=== PATIENT | female | born 1990 | race Caucasian/White ===

== ENCOUNTER → 2017-07-26 | Outpatient (CLI) | payer OTHER ==
[2017-07-26 13:10] LABS: EOSINOPHILS # (AUTO) 0.1 10^3/uL (0.0-0.7); EOSINOPHILS % (AUTO) 2.6 %; HCT - HEMATOCRIT 38.8 % (37.0-47.0); HGB - HEMOGLOBIN 13.1 g/dL (12.0-16.0); LYMPHOCYTES # (AUTO) 1.8 10^3/uL (1.5-3.5); LYMPHOCYTES % (AUTO) 38.3 %; MEAN CORPUSCULAR HEMOGLOBIN 28.9 pg (27.0-31.0); MEAN CORPUSCULAR HGB CONC 33.7 g/dL (32.0-36.0); MEAN CORPUSCULAR VOLUME 85.9 fL (81.0-99.0); MEAN PLATELET VOLUME 8.2 fL (7.9-10.8); MONOCYTES # (AUTO) 0.4 10^3/uL (0.0-1.0); MONOCYTES % (AUTO) 8.1 %; NEUTROPHILS # (AUTO) 2.3 10^3/uL (1.5-6.6); NUCLEATED RED BLOOD CELLS AUTO 0.1 /100WBC; RED BLOOD COUNT 4.51 10^6/uL (4.20-5.40); UNCORRECTED WHITE BLOOD COUNT 4.6 x10^3/uL; WHITE BLOOD COUNT 4.6 x10^3/uL (4.8-10.8)
[2017-07-26 13:40] LABS: ALBUMIN/GLOBULIN RATIO 1.4 (1.0-2.2); BILIRUBIN,TOTAL 0.3 mg/dL (0.2-1.0); BUN - BLOOD UREA NITROGEN 11 mg/dL (6-20); CALCIUM 9.2 mg/dL (8.5-10.3); CARBON DIOXIDE - CO2 28 mmol/L (21-32); CHLORIDE 107 mmol/L (101-111); CHOL/HDL RATIO 2.5 (<4.4); CHOLESTEROL 182 mg/dL; CREATININE 0.5 mg/dL (0.4-1.0); GFR - MDRD 149 (>89); GLUCOSE 96 mg/dL (70-100); HDL CHOLESTEROL 72 mg/dL; LDL/HDL RATIO 1.4 (<4.4); POTASSIUM 3.8 mmol/L (3.5-5.0); SODIUM 139 mmol/L (135-145); TOTAL PROTEIN 7.3 g/dL (6.7-8.2); TRIGLYCERIDES 42 mg/dL; VLDL CHOLESTEROL 8 mg/dL
== END ==
LOC: LAB.WCP 09:17
PROVIDERS: ATTEND Family Medicine
DX: Z00.00 Encounter for general adult medical examination without abnormal findings (principal)
CPT/HCPCS: 36415; 80053; 80061; 85025

== ENCOUNTER 2019-08-19 08:00 | Outpatient (CLI) | payer BC, OTHER | END 2019-08-19 23:59 | disposition home or self-care (01) | LOC: LAB.WCP 08:00 | PROVIDERS: ATTEND Family Medicine | DX: N39.0 Urinary tract infection, site not specified (principal) | CPT/HCPCS: 87077; 87086; 87181 ==

== ENCOUNTER 2021-01-17 08:00 | Outpatient (CLI) | payer BC ==
[2021-01-17 18:36] LABS: BASOPHILS % (AUTO) 0.7 %; EOSINOPHILS # (AUTO) 0.1 10^3/uL (0.0-0.7); EOSINOPHILS % (AUTO) 1.2 %; HCT - HEMATOCRIT 40.8 % (37.0-47.0); LYMPHOCYTES # (AUTO) 1.2 10^3/uL (1.5-3.5); LYMPHOCYTES % (AUTO) 28.7 %; MEAN CORPUSCULAR HEMOGLOBIN 28.9 pg (27.0-31.0); MEAN CORPUSCULAR HGB CONC 31.9 g/dL (32.0-36.0); MEAN CORPUSCULAR VOLUME 90.7 fL (81.0-99.0); MEAN PLATELET VOLUME 10.1 fL (7.9-10.8); MONOCYTES # (AUTO) 0.3 10^3/uL (0.0-1.0); MONOCYTES % (AUTO) 5.9 %; NEUTROPHILS # (AUTO) 2.7 10^3/uL (1.5-6.6); NEUTROPHILS % (AUTO) 63.3 %; PLT - PLATELET COUNT 260 10^3/uL (130-450); RED CELL DISTRIBUTION WIDTH 12.6 % (12.0-15.0); WHITE BLOOD COUNT 4.2 x10^3/uL (4.8-10.8)
[2021-01-17 19:13] LABS: % IRON SATURATION 18 % (20-50); ALBUMIN 4.6 g/dL (3.2-5.5); ALBUMIN/GLOBULIN RATIO 1.5 (1.0-2.2); ALKALINE PHOSPHATASE 39 IU/L (42-121); ALT ALANINE AMINOTRANSFERASE 12 IU/L (10-60); AST ASPARTATE AMINOTRANSFERASE 15 IU/L (10-42); BILIRUBIN,TOTAL 0.7 mg/dL (0.2-1.0); BUN - BLOOD UREA NITROGEN 10 mg/dL (6-20); CALCIUM 9.3 mg/dL (8.5-10.3); CARBON DIOXIDE - CO2 26 mmol/L (21-32); CHLORIDE 101 mmol/L (101-111); CHOL/HDL RATIO 2.5 (<4.4); CHOLESTEROL 211 mg/dL; CREATININE 0.4 mg/dL (0.4-1.0); GFR - MDRD 187 (>89); GLUCOSE 93 mg/dL (70-100); HDL CHOLESTEROL 84 mg/dL; IRON 77 ug/dL (28-170); LDL CHOLESTEROL,CALCULATED 116 mg/dL; LDL/HDL RATIO 1.4 (<4.4); POTASSIUM 3.5 mmol/L (3.5-5.0); SODIUM 136 mmol/L (135-145); TOTAL IRON BINDING CAPACITY 420 ug/dL (250-450); TOTAL PROTEIN 7.7 g/dL (6.7-8.2); TRANSFERRIN 300 mg/dL (192-382); TRIGLYCERIDES 56 mg/dL; VLDL CHOLESTEROL 11 mg/dL
[2021-01-17 19:20] LABS: THYROID STIMULATING HORMONE 0.92 uIU/mL (0.34-5.60)
[2021-01-17 19:27] LABS: FERRITIN 25.8 ng/mL (11.0-306.8)
[2021-01-17 20:00] LABS: ESTIMATED AVERAGE GLUCOSE 103 mg/dL (70-100); HEMOGLOBIN A1c% 5.2 % (4.27-6.07)
== END 2021-01-17 23:59 | disposition home or self-care (01) ==
LOC: LAB.WCP 08:00
PROVIDERS: ATTEND Family Medicine
DX: Z00.00 Encounter for general adult medical examination without abnormal findings (principal)
CPT/HCPCS: 36415; 80053; 80061; 82306; 82607; 82728; 83036; 83540; 83721; 84443; 84466; 85025

== ENCOUNTER 2021-01-19 08:00 | Outpatient (CLI) | payer BC ==
[2021-01-19 19:28] LABS: FECAL OCCULT BLOOD (FIT) NEGATIVE (NEGATIVE)
== END 2021-01-19 23:59 | disposition home or self-care (01) ==
LOC: LAB.R 08:00
PROVIDERS: ATTEND Family Medicine
DX: K92.1 Melena (principal)
CPT/HCPCS: 82274

== ENCOUNTER 2021-04-01 08:00 | Outpatient (CLI) | payer BC ==
[2021-04-01 18:12] LABS: MUDS CUTOFF CONCENTRATIONS CUTOFF CONC BELOW:
[2021-04-01 18:27] LABS: BILIRUBIN,URINE NEGATIVE (NEGATIVE); GLUCOSE, URINE (UA) NEGATIVE (NEGATIVE); KETONES,URINE (UA) NEGATIVE (NEGATIVE); LEUKOCYTE ESTERASE, URINE TRACE (NEGATIVE); NITRITE,URINE NEGATIVE (NEGATIVE); OCCULT BLOOD,URINE NEGATIVE (NEGATIVE); PH,URINE 7.5 PH (5.0-7.5); PROTEIN,URINE NEGATIVE (NEGATIVE); UROBILINOGEN,URINE 0.2 (NORMAL) E.U./dL (NORMAL)
[2021-04-01 18:31] LABS: CLARITY,URINE HAZY (CLEAR)
[2021-04-01 18:39] LABS: AMPHETAMINE SCREEN,URINE NEGATIVE (NEGATIVE); BARBITURATE SCREEN,UR NEGATIVE (NEGATIVE); BENZODIAZEPINES SCREEN, URINE NEGATIVE (NEGATIVE); COCAINE SCREEN URINE NEGATIVE (NEGATIVE); METHADONE SCREEN, URINE NEGATIVE (NEGATIVE); METHAMPHETAMINES SCREEN, URINE NEGATIVE (NEGATIVE); OPIATE SCREEN, URINE NEGATIVE (NEGATIVE); OXYCODONE SCREEN, URINE NEGATIVE (NEGATIVE); PROPOXYPHENE SCREEN, URINE NEGATIVE (NEGATIVE); THC CANNABINOID SCREEN, URINE NEGATIVE (NEGATIVE); TRICYCLIC ANTIDEPRESSANT,URINE NEGATIVE (NEGATIVE)
[2021-04-01 18:45] LABS: BACTERIA,URINE Few /HPF (None Seen); RBC,URINE None Seen /HPF (0-5); SQUAMOUS EPITHELIAL CELL,UR NONE SEEN (<= Few)
== END 2021-04-01 23:59 | disposition home or self-care (01) ==
LOC: LAB.WC 08:00
PROVIDERS: ATTEND Obstetrics & Gynecology
DX: Z32.01 Encounter for pregnancy test, result positive (principal)
CPT/HCPCS: 80306; 81001; 87086

== ENCOUNTER 2021-04-14 16:57 | Outpatient (CLI) | payer BC ==
[2021-04-14 18:08] LABS: BASOPHILS % (AUTO) 0.3 %; EOSINOPHILS # (AUTO) 0.1 10^3/uL (0.0-0.7); EOSINOPHILS % (AUTO) 1.1 %; HCT - HEMATOCRIT 37.2 % (37.0-47.0); HGB - HEMOGLOBIN 12.5 g/dL (12.0-16.0); LYMPHOCYTES % (AUTO) 21.9 %; MEAN CORPUSCULAR HEMOGLOBIN 29.6 pg (27.0-31.0); MEAN CORPUSCULAR HGB CONC 33.6 g/dL (32.0-36.0); MEAN CORPUSCULAR VOLUME 87.9 fL (81.0-99.0); MEAN PLATELET VOLUME 9.5 fL (7.9-10.8); MONOCYTES # (AUTO) 0.6 10^3/uL (0.0-1.0); MONOCYTES % (AUTO) 6.9 %; NEUTROPHILS # (AUTO) 6.4 10^3/uL (1.5-6.6); NEUTROPHILS % (AUTO) 69.5 %; PLT - PLATELET COUNT 244 10^3/uL (130-450); RED BLOOD COUNT 4.23 10^6/uL (4.20-5.40); RED CELL DISTRIBUTION WIDTH 12.9 % (12.0-15.0); WHITE BLOOD COUNT 9.3 x10^3/uL (4.8-10.8)
--- NOTE | 2021-04-15 10:04 | Ultrasound Report ---
PROCEDURE: OB First Trimester INDICATIONS: POSITIVE TEST OUTSIDE/PRIOR DATING DATA: Last menstrual period (LMP): 02/06/2021. LMP-based estimated date of delivery (YAW): 11/13/2021. First dating scan (date and location): 04/14/2021. Estimated date of delivery (YAW) from first dating scan: 11/14/2021. The below data below was generated using the above YAW of TECHNIQUE: Real-time scanning was performed of the fetus and maternal pelvic organs, with image documentation. COMPARISON: None. FINDINGS: There is a single living intrauterine gestation with crown-rump length 2.6 cm which correl ates with a gestational age of 9 weeks 3 days, +/- 5 days. heart rate of 169 bpm is observed. Embryo: No evidence of perigestational hemorrhage. Heart rate: 1 69 bpm. Measurement variability in dating: +/- 4 weeks by LMP, +/- 7 days by mean sac diameter (use before 6 weeks gestation if crown-rump length not able to be measured), +/- 5 days by crown-rump length (6-12 weeks gestation). Maternal organs: Ovaries normal considering gestational status.. IMPRESSION: Early first trimester gestation, viability confirmed, estimated date of delivery is centered on 11/14/2021, +/- 5 days. Reviewed by: Mert Mckeon MD on 04/15/2021 10:03 AM PDT Approved by: Mert Mckeon MD on 04/15/2021 10:03 AM PDT Station ID: [id number]
[2021-04-16 11:41] LABS: HEPATITIS B SURFACE ANTIGEN NON-REACTIVE (NON-REACTIVE)
[2021-04-16 11:42] LABS: HEPATITIS C ANTIBODY NON-REACTIVE (NON-REACTIVE)
[2021-04-16 13:33] LABS: HIV AG/AB 4TH GEN NON-REACTIVE (NON-REACTIVE)
== END 2021-04-14 16:58 | disposition home or self-care (01) ==
LOC: DI 16:57 → LAB 16:58
PROVIDERS: ATTEND Nurse Practitioner Obstetrics & Gynecology
DX: Z36.89 Encounter for other specified antenatal screening (principal); Z32.01 Encounter for pregnancy test, result positive
CPT/HCPCS: 36415; 85025; 86592; 86762; 86787; 86803; 86850; 86900; 86901; 87340; 87389

== ENCOUNTER 2021-05-02 08:00 | Outpatient (CLI) | payer BC ==
[2021-05-03 22:22] LABS: CHLAMYDIA TRACHOMATIS DNA NEGATIVE (NEGATIVE); NEISSERIA GONORRHOEAE DNA NEGATIVE (NEGATIVE); TRICHOMONAS VAGINALIS DNA NEGATIVE (NEGATIVE)
== END 2021-05-02 23:59 | disposition home or self-care (01) ==
LOC: LAB.R 08:00
PROVIDERS: ATTEND Obstetrics & Gynecology
DX: Z34.90 Encounter for supervision of normal pregnancy, unspecified, unspecified trimester (principal)
CPT/HCPCS: 87491; 87591; 87661

== ENCOUNTER 2021-05-14 05:42 | Outpatient (CLI) | payer BC | END 2021-05-14 05:43 | disposition home or self-care (01) | LOC: LAB 05:42 | PROVIDERS: ATTEND Obstetrics & Gynecology | DX: Z34.90 Encounter for supervision of normal pregnancy, unspecified, unspecified trimester (principal); Z36.89 Encounter for other specified antenatal screening | CPT/HCPCS: 36415; 81220; 81243; 81329; 81599 ==

== ENCOUNTER 2021-06-09 14:41 | Outpatient (CLI) | payer BC ==
--- NOTE | 2021-06-13 09:50 | Ultrasound Report ---
PROCEDURE: OB Detailed Eval INDICATIONS: SUPERVISION OF OUTSIDE/PRIOR DATING DATA: Last menstrual period (LMP): 02/06/2021. LMP-based estimated date of delivery (YAW): 11/13/2021. First dating scan (date and location): 04/14/2021. Estimated date of delivery (YAW) from first dating scan: 11/14/2021. TECHNIQUE: Real-time scanning was performed of the fetus, with image documentation and biometric measurements. Endovaginal scanning: No COMPARISON: 04/14/2021 ultrasound examination FINDINGS: General: A single living intrauterine gestation is present. Presentation: Breech Placenta: Placental position is posterior, with marginal previa. Inferior placental edge is roughly 9 mm from internal cervical loss. Amniotic fluid index: 11.3 cm heart rate: 160 beats per minute. Maternal cervical canal: 3.30 cm long; normal length is 2.5 cm or more. biometrics: Biparietal diameter: 36 mm; 16 weeks 6 days Head circumference: 141 mm; 17 weeks 3 days Abdominal circumference: 117 mm; 17 weeks 3 days Femur length: 25 mm; 17 weeks 3 days Estimated gestational age from initial scan: 17 weeks 3 days Composite gestational age from present scan: 17 weeks 3 days Estimated weight and percentile: 194 g which is at the 43rd percentile for gestational age Measurement variability in biometric dating: +/- 10 days from 12-20 weeks gestation, +/- 2 weeks from 20-30 weeks gestation, +/- 3 weeks at 30 weeks gestation or later. Anatomic survey: Neuro: Ventricles are normal at less than 10 mm. Cisterna magna is normal at 3-11 mm. Cerebellum i s normal in size and morphology. Nuchal skin fold: Normal at less than 6 mm between 14 and 20 weeks gestational age. Face: Nose and lips, facial profile are normal. Spine: No evidence for spina bifida. Heart: 4-chambered heart is present, with normal ventricular outflow tracts. Diaphragm: Diaphragm is intact. Stomach: Left-sided stomach is present. Kidneys: No hydronephrosis. Normal is less than 5 mm in 2nd trimester, less than 7 mm in 3rd trimester. Cord: 3 vessel cord has orthotopic insertion. Bladder: Normal in size. Extremities: All 4 extremities are visualized. IMPRESSION: 1. Single living intrauterine gestation. 2. Marginal placenta previa. 3. Negative survey of anatomy. Reviewed by: Mae Mejia MD on 06/13/2021 9:49 AM PDT Approved by: Mae Mejia MD on 06/13/2021 9:49 AM PDT Station ID: [id number]
== END 2021-06-09 14:42 | disposition home or self-care (01) ==
LOC: DI 14:41
PROVIDERS: ATTEND Obstetrics & Gynecology
DX: O44.22 Partial placenta previa NOS or without hemorrhage, second trimester (principal); Z3A.17 17 weeks gestation of pregnancy
CPT/HCPCS: 81511

== ENCOUNTER 2021-06-09 16:26 | Outpatient (CLI) | payer BC ==
[2021-06-14 12:42] LABS: AFP MOM 1.61; AGE RISK DOWN SYNDROME 1 IN 671; CALC'D GESTATIONAL AGE 17.6 weeks; CIGARETTE SMOKER? NOT GIVEN; DONOR AGE: EGG RETRIEVAL NOT GIVEN; DONOR EGG NOT GIVEN; ESTRIOL MOM 1.29; HCG MOM 0.54; HX OF NEURAL TUBE DEFECTS NOT GIVEN; INHIBIN A MOM 0.95; INSULIN DEPEND DIABETIC NO; MATERNAL WEIGHT 98 lbs; MSS DOWN SYNDROME RISK <1 IN 5000; MSS3 TRISOMY 18 RISK <1 IN 5000; NUMBER OF FETUSES 1; PREV PREGNANCY DOWN SYND NOT GIVEN; RISK FOR ONTD 1 IN 2046
== END 2021-06-09 16:27 | disposition home or self-care (01) ==
LOC: LAB 16:26
PROVIDERS: ATTEND Obstetrics & Gynecology
DX: Z34.90 Encounter for supervision of normal pregnancy, unspecified, unspecified trimester (principal)
CPT/HCPCS: 81511

== ENCOUNTER 2021-06-28 15:39 | Outpatient (CLI) | payer BC ==
--- NOTE | 2021-06-29 11:20 | Ultrasound Report ---
PROCEDURE: OB F/U or Repeat INDICATIONS: SUPERVISION OF OUTSIDE/PRIOR DATING DATA: Last menstrual period (LMP): 02/06/2021. LMP-based estimated date of delivery (YAW): 11/13/2021. First dating scan (date and location): 04/14/2021. Estimated date of delivery (YAW) from first dating scan: 11/14/2021. The below data below was generated using the ultrasound YAW of 11/14/2021 TECHNIQUE: Real-time scanning was performed of the fetus, with image documentation and biometric measurements. Endovaginal scanning: Not performed COMPARISON: 04/14/2021, 06/09/2021, 06/28/2021. FINDINGS: General: A single living intrauterine gestation is present. Presentation: Vertex Placenta: Placental position is posterior, without previa. Amniotic fluid index: 14.0 cm, normal for gestational age. Largest pocket measures 4.2 cm. heart rate: 147 beats per minute. Maternal cervical canal: 4.1 cm long; normal length is 2.5 cm or more. Estimated gestational age from initial scan: 20 weeks 1 day. Other: Inferior tip of the placenta approximately 2 cm from the internal os. Normal appearance of the spine, four-chamber heart, ventricular outflow tracts, chest, stomach, kidneys, face and urina ry bladder. IMPRESSION: Single living intrauterine fetus in vertex presentation Low-lying placenta. Recommend follow-up. Otherwise, completion of normal anatomic survey. Reviewed by: Harjit Taylor MD on 06/29/2021 11:19 AM PDT Approved by: Harjit Taylor MD on 06/29/2021 11:19 AM PDT Station ID: [id number]
== END 2021-06-28 15:40 | disposition home or self-care (01) ==
LOC: DI 15:39
PROVIDERS: ATTEND Obstetrics & Gynecology
DX: Z34.92 Encounter for supervision of normal pregnancy, unspecified, second trimester (principal)

== ENCOUNTER 2021-07-22 16:48 | Outpatient (CLI) | payer BC ==
--- NOTE | 2021-07-22 17:43 | PROVIDER PROGRESS NOTE ---
- HPI Chief Complaint: Vaginal bleeding Current : Patient is a 31-year-old G1, P0 at 23 weeks 5 days gestation presenting for vaginal bleeding. She said earlier today she stood up to go to the kitchen and had a small gush of blood. She find a liner, and had a small amount more. She came in because of this. She has good movement. No significant leaking other than the bleeding. No headache, change in vision, right upper quadrant pain. She denies intercourse this morning. No dysuria. - Procedures NST Procedure: 115 by bedside Doppler Findings: Physical exam: General: Alert, oriented, no acute distress Abdomen: Soft, nontender SSE: Small amount of fresh blood in the vagina and on external labia. Mucoid material coming from cervical os. No tim bleeding. Negative Negative pooling, ferning, Valsalva, nitrazine SVE: Deferred - Plan Plan: 31-year-old G1, P0 at 23 weeks 5 days gestation with vaginal bleeding 1. 23 weeks gestation - heart tones documented and appropriate by bedside Doppler 2. Vaginal bleeding -GC/CT/trichomonas sent to lab -Wet prep is unremarkable. No clue cells, trichomonas, no significant yeast noted on exam -Sterile speculum exam negative for signs of ruptured membranes -Due to small amount of blood, test for rupture of membranes was not sent to the lab as false positives occur with blood contamination -More mucoid discharge from cervix than usual, however does not appear to that membranes are ruptured. We did discuss with patient that if her membranes were ruptured, there would be little we could do at this point. Did not want to send rupture membrane test and have false positive entire in a process of PPPROM if this were falsely diagnosed. -Will monitor for signs of labor or increase leaking. If patient has another episode of significant leaking, she should represent for another SSE and assessment of amniotic fluid. -Patient to return if she develops abdominal pain, fevers. Family/Social History - Family History Discussion: Mother: Breast cancer- at age 46 Father: Hypertension Maternal grandfather: CVA - Social History Discussion: Never smoker. No drug or alcohol use. PMH/PSH - Past Medical History Other Past Medical History: Tuberculosis - Past Surgical History Other past surgical history: None Physical - Abdominal Exam Vital Signs: Exam - Exam Vital Signs: Vital Signs (72 hours) 07/22/21 17:07 Temperature 97.9 F Heart Rate 96 Heart Rate [ 96 Radial] Respiratory 14 Rate Blood Pressure 122/80 Blood Pressure 122/80 [Left Brachial artery] O2 Saturation 100
[2021-07-22 17:53] VITALS: BP 122/80
== END 2021-07-22 18:09 | disposition home or self-care (01) ==
LOC: WFO 16:48 → FBP 16:50 → WFO 18:09
PROVIDERS: ATTEND Obstetrics & Gynecology
DX: O20.9 Hemorrhage in early pregnancy, unspecified (principal); Z3A.23 23 weeks gestation of pregnancy; Z86.11 Personal history of tuberculosis
CPT/HCPCS: 87491; 87591; 87661; 99215

== ENCOUNTER 2021-08-10 08:00 | Outpatient (CLI) | payer BC ==
[2021-08-11 20:28] LABS: BACTERIAL VAGINOSIS DNA NEGATIVE (NEGATIVE); CANDIDA GLABRATA DNA NEGATIVE (NEGATIVE); CANDIDA GROUP DNA NEGATIVE (NEGATIVE); CANDIDA KRUSEI DNA NEGATIVE (NEGATIVE); TRICHOMONAS VAGINALIS DNA NEGATIVE (NEGATIVE)
== END 2021-08-10 08:45 | disposition home or self-care (01) ==
LOC: LAB 08:00
PROVIDERS: ATTEND Nurse Practitioner Obstetrics & Gynecology
DX: O99.891 Other specified diseases and conditions complicating pregnancy (principal); N89.8 Other specified noninflammatory disorders of vagina
CPT/HCPCS: 87661; 87801

== ENCOUNTER 2021-08-21 06:00 | Outpatient (CLI) | payer BC | END 2021-08-21 23:59 | LOC: LAB 06:00 | PROVIDERS: ATTEND Obstetrics & Gynecology | DX: Z34.00 Encounter for supervision of normal first pregnancy, unspecified trimester (principal); Z36.89 Encounter for other specified antenatal screening | CPT/HCPCS: 36415; 82947; 82950 ==

== ENCOUNTER 2021-08-30 07:59 | Outpatient (CLI) | payer BC ==
[2021-08-30 08:47] LABS: GTT GLUCOSE,FASTING 79 mg/dL (70-100)
[2021-08-30 11:45] LABS: HCT - HEMATOCRIT 33.5 % (37.0-47.0); HGB - HEMOGLOBIN 11.1 g/dL (12.0-16.0); MEAN CORPUSCULAR HEMOGLOBIN 30.9 pg (27.0-31.0); MEAN CORPUSCULAR HGB CONC 33.1 g/dL (32.0-36.0); MEAN CORPUSCULAR VOLUME 93.3 fL (81.0-99.0); MEAN PLATELET VOLUME 9.5 fL (7.9-10.8); RED BLOOD COUNT 3.59 10^6/uL (4.20-5.40); RED CELL DISTRIBUTION WIDTH 13.2 % (12.0-15.0); WHITE BLOOD COUNT 6.9 x10^3/uL (4.8-10.8)
== END 2021-08-30 08:00 | disposition home or self-care (01) ==
LOC: LAB 07:59
PROVIDERS: ATTEND Obstetrics & Gynecology
DX: O99.810 Abnormal glucose complicating pregnancy (principal)
CPT/HCPCS: 36415; 82951; 82952; 85027

== ENCOUNTER 2021-09-26 13:00 | Outpatient (CLI) | payer BC | END 2021-09-26 13:01 | disposition home or self-care (01) | LOC: NS 13:00 | PROVIDERS: ATTEND Obstetrics & Gynecology | DX: Z53.9 Procedure and treatment not carried out, unspecified reason (principal) ==

== ENCOUNTER 2021-09-29 15:09 | Outpatient (CLI) | payer BC ==
--- NOTE | 2021-09-29 16:29 | Ultrasound Report ---
PROCEDURE: OB F/U or Repeat INDICATIONS: GESTATIONAL DIABETES OUTSIDE/PRIOR DATING DATA: Last menstrual period (LMP): 02/06/2021. LMP-based estimated date of delivery (YAW): 11/13/2021. First dating scan (date and location): 04/14/2021. Estimated date of delivery (YAW) from first dating scan: 11/14/2021. The below data below was generated using the ultrasound YAW of 11/14/2021 TECHNIQUE: Real-time scanning was performed of the fetus, with image documentation and biometric measurements. COMPARISON: OB ultrasound 06/28/2021, 04/14/2021 FINDINGS: General: A single living intrauterine gestation is present. Presentation: Vertex Placenta: Placental position is posterior, without previa. Amniotic fluid index: 13.6 cm, within normal limits for gestational age. Largest pocket 4.3 cm heart rate: 150 beats per minute. Maternal cervical canal: 3.0 cm long; normal length is 2.5 cm or more. biometrics: Biparietal diameter: 7.7 cm 31 weeks 0 days Head circumference: 29.6 cm 32 weeks 5 days Abdominal circumference: 20.1 cm 32 weeks 1 day Femur length: 6.2 cm 32 weeks 0 days Estimated gestational age from initial scan: 33 weeks 3 days Composite gestational age from present scan: 32 weeks 0 days Estimated weight and percentile: 18 7 g 10.6 percentile Measurement variability in biometric dating: +/- 10 days from 12-20 weeks gestation, +/- 2 weeks from 20-30 weeks gestation, +/- 3 weeks at 30 weeks gestation or more. Other: Nuchal cord is noted. IMPRESSION: 1. Single live intrauterine is identified. 2. weight is noted at the 10th percentile concerning for microsomia. It is noted weight o n 06/09/2021 was at the 43rd percentile. Clinical and an interval ultrasound follow-up is recommended. 3. Nuchal cord is noted. Interval follow-up is recommended as indicated. Reviewed by: Shanel Nichols MD on 09/29/2021 4:28 PM PST Approved by: Shanel Nichols MD on 09/29/2021 4:28 PM PST Station ID: [id number]
== END 2021-09-29 15:10 | disposition home or self-care (01) ==
LOC: DI 15:09
PROVIDERS: ATTEND Obstetrics & Gynecology
DX: O24.419 Gestational diabetes mellitus in pregnancy, unspecified control (principal); O09.93 Supervision of high risk pregnancy, unspecified, third trimester; Z3A.32 32 weeks gestation of pregnancy

== ENCOUNTER 2021-10-19 08:00 | Outpatient (CLI) | payer BC | END 2021-10-19 23:59 | disposition home or self-care (01) | LOC: LAB.WC 08:00 | PROVIDERS: ATTEND Obstetrics & Gynecology | DX: Z36.85 Encounter for antenatal screening for Streptococcus B (principal) | CPT/HCPCS: 87797 ==

== ENCOUNTER 2021-10-24 16:09 | Outpatient (CLI) | payer BC ==
--- NOTE | 2021-10-24 18:01 | Ultrasound Report ---
PROCEDURE: OB F/U or Repeat INDICATIONS: GESTATIONAL DIABETES OUTSIDE/PRIOR DATING DATA: Last menstrual period (LMP): 02/06/2021. LMP-based estimated date of delivery (YAW): 11/13/2021. First dating scan (date and location): 04/14/2021. Estimated date of delivery (YAW) from first dating scan: 11/14/2021. The below data below was generated using the ultrasound YAW of 11/14/2021 TECHNIQUE: Real-time scanning was performed of the fetus, with image documentation and biometric measurements. COMPARISON: None. FINDINGS: General: A single living intrauterine gestation is present. Presentation: Vertex Placenta: Placental position is posterior, without previa. Amniotic fluid index: 18.3 cm. Largest pocket 6.1 cm heart rate: 145 beats per minute. Maternal cervical canal: Unable to image biometrics: Biparietal diameter: 8.5 cm. 34 weeks 0 days Head circumference: 31.6 cm. 35 weeks 3 days Abdominal circumference: 30.6 cm. 34 weeks 4 days Femur length: 6.9 cm. 35 weeks 3 days Estimated gestational age from initial scan: 37 weeks 0 days. Composite gestational age from present scan: 34 weeks 6 days Estimated weight and percentile: 2523 g. 9.5 percentile Measurement variability in biometric dating: +/- 10 days from 12-20 weeks gestation, +/- 2 weeks from 20-30 weeks gestation, +/- 3 weeks at 30 weeks gestation or more. Other: Not applicable. IMPRESSION: 1. size less than expected for dates. 2. Estimated weight 2523 g, 9.5%tile concerning for microsomia.. Reviewed by: David Castro on 10/24/2021 6:00 PM [facility] Approved by: David Castro on 10/24/2021 6:00 PM [facility] Station ID: [id number]
== END 2021-10-24 16:10 | disposition home or self-care (01) ==
LOC: DI 16:09
PROVIDERS: ATTEND Obstetrics & Gynecology
DX: O09.93 Supervision of high risk pregnancy, unspecified, third trimester (principal); O24.419 Gestational diabetes mellitus in pregnancy, unspecified control; Z3A.34 34 weeks gestation of pregnancy

== ENCOUNTER 2021-10-27 16:34 | Outpatient (CLI) | payer BC ==
[2021-10-27 17:21] VITALS: BP 127/82
--- NOTE | 2021-10-27 18:12 | Ultrasound Report ---
PROCEDURE: OB Limited INDICATIONS: IUGR OUTSIDE/PRIOR DATING DATA: Last menstrual period (LMP): 02/06/2021. LMP-based estimated date of delivery (YAW): 11/13/2021. First dating scan (date and location): 04/14/2021. Estimated date of delivery (YAW) from first dating scan: 11/14/2021. The below data below was generated using the ultrasound YAW of 11/14/2021 TECHNIQUE: Real-time scanning was performed of the fetus, with image documentation. Endovaginal scanning: Not performed COMPARISON: 10/24/2021 FINDINGS: A single living intrauterine gestation is present. Presentation: Vertex Placenta: Placental position is posterior, without previa. Amniotic fluid index: 17.2 cm, largest vertical pocket measured 4.7 cm heart rate: 150 beats per minutes. Maternal cervical canal: Not imaged. Estimated gestational age from initial scan: 37 weeks and 3 days. Normal SD ratios measuring 2.4 at the placenta, 2.4 at the mid cord, and 2.7 at the abdomen. Incident al note of nuchal cord. Normal appearing umbilical artery Doppler waveforms. IMPRESSION: Single living intrauterine gestation with estimated gestational age of approximately 77 weeks and 3 d ays. Four-quadrant PAULIE measures 17.2 cm with largest vertical pocket measuring 4.7 cm. Normal SD ratios and umbilical artery Doppler waveforms. Incidental note of nuchal cord. Findings were reported to Dr. Blum by the learning support teacher at time of study completion. Reviewed by: Jose Rebolledo MD on 10/27/2021 6:11 PM PST Approved by: Jose Rebolledo MD on 10/27/2021 6:11 PM PST Station ID: [id number]
--- NOTE | 2021-10-27 20:12 | PROCEDURE REPORT ---
- HPI Diagnosis/Indication for NST: Intrauterine growth restriction Current EDU 11/13/21 Gestation 37 Weeks and 4 Days 1 Para 0 Vital Signs Temperature 98.6 F 10/27/21 16:50 Heart Rate 85 10/27/21 16:50 Respiratory Rate 17 10/27/21 16:50 Blood Pressure 131/81 H 10/27/21 16:50 O2 Saturation 100 10/27/21 16:50 Temperature 98.6 F 10/27/21 16:55 Heart Rate 85 10/27/21 16:50 Respiratory Rate 17 10/27/21 16:50 Blood Pressure 127/82 H 10/27/21 17:21 O2 Saturation 100 10/27/21 16:50 - NST Procedure NST Procedure Start Date 10/27/21 Start Time 16:44 Stop Time 17:11 Vibroacoustic Stimulation Used No Patient States Movement Yes - Results and Plan Plan: Patient is a 31-year-old G1, P0 at 37 weeks 4 days gestation here for scheduled NST. NST Performed 10/27/2021 NST Read on 10/27/2021 FHT: 135 beats per baseline, moderate variability, accelerations present, no decelerations. [place]: Approximately 10 minutes Diagnosis 37 weeks gestation IUGR Reactive NST Continue with twice weekly NST. Denies feeling significant tractions, cervix was checked yesterday and it, declined cervical exam today as unchanged. Discussed labor precautions and kick counts.
== END 2021-10-27 17:59 | disposition home or self-care (01) ==
LOC: WFO 16:34 → FBP 16:36 → WFO 17:59
PROVIDERS: ATTEND Obstetrics & Gynecology
DX: O36.5930 Maternal care for other known or suspected poor fetal growth, third trimester, not applicable or unspecified (principal); Z3A.37 37 weeks gestation of pregnancy
CPT/HCPCS: 59025

== ENCOUNTER 2021-10-28 01:35 | Inpatient (IN) | payer BC ==
[2021-10-28 02:23] LABS: RUPTURE OF MEMBRANES PLUS POSITIVE (NEGATIVE)
[2021-10-28] MEDS ORDERED: TRANEXAMIC ACID IN NACL 1,000 MG/100 ML BAG IV PRN (02:29)
[2021-10-28] MEDS ORDERED: LABETALOL 20 MG/4 ML SYRINGE IVP PRN (02:29)
[2021-10-28] MEDS ORDERED: OXYTOCIN 10 UNIT/ML VIAL IM PRN (02:29)
[2021-10-28] MEDS ORDERED: TERBUTALINE 1 MG/ML VIAL SUBQ PRN (02:29)
[2021-10-28] MEDS ORDERED: METHYLERGONOVINE 0.2 MG/ML VIAL IM PRN (02:29)
[2021-10-28] MEDS ORDERED: fentaNYL 100 MCG/2 ML VIAL IVP PRN (02:29)
[2021-10-28] MEDS ORDERED: miSOPROStoL 200 MCG TABLET PR PRN (02:29)
[2021-10-28] MEDS ORDERED: LIDOCAINE-MPF 1% 30 ML VIAL ID PRN (02:29)
[2021-10-28] MEDS ORDERED: SODIUM CHLORIDE FLUSH 0.9% 10 ML SYRINGE IVP PRN (02:29)
[2021-10-28] MEDS ORDERED: miSOPROStoL 200 MCG TABLET BC PRN (02:29)
[2021-10-28] MEDS ORDERED: OXYTOCIN/SODIUM CHLORIDE 500 ML IV PRN (02:29)
[2021-10-28] MEDS ORDERED: CARBOPROST TROMETHAMINE 250 MCG/ML AMP IM PRN (02:29)
--- NOTE | 2021-10-28 02:36 | HISTORY & PHYSICAL EXAMINATION ---
Admit History - Visit Reason Visit Reason: Membranes rupture - : 1 Parity: 0 Complications This : positive: Gestational diabetes, Other (IUGR) - Mother's Labs Mother's Blood Type: positive: A Mother's RH: positive: Positive GBS: positive: Group B Step Negative Rubella Status: positive: Immune - Other Maternal History Other Maternal History: HPI: 31-year-old G1, P0 at 37 weeks 5 days gestation presents today with rupture membranes at approximately 0130. He felt a gush of fluid and some pink-tinged mucus she has some tightening, but no significant. Contractions. This is been the same for her and is unchanged since about 2 days ago during her visit and yesterday during her monitoring.. She has good movement. No ACOSTA/BV or RUQP. No vaginal bleeding. Denies nausea and vomiting. Denies urinary urgency or dysuria. All other symptoms reviewed and were negative except per HPI. Course GDM: Diet controlled at present - growth us for week of 10/24/21 was 9.5 percentile - surveillance yesterday was within normal limits with normal PAULIE and UA dopplers. LMP: 02/06/2021 YAW by LMP: 11/13/2021 Initial U/S: at 9.3 c/w LMP yaw 11/14/2021 Vertex by bedside us A+/Rub immune VZV immune Genetic testing: CF, SMA, and Fragile X all negative QUAD -negative FAS: wnl, 43%ile, 3.3 cm CL, posterior, LL placenta 0.9 cm form cervical os F/U US completed for placenta location- 2cm from interal OS. Heart well visualized. Glucola: 08/01 result 180 3 Hour GTT : 08/22/2021 fasting 79 197, 189, 151 Influenza: 08/01 Covid: Moderna complete 12/2020 Second 01/18/21. booster moderna 09/12/21 TDAP 08/29/21 GBS : 10/19/2021 NEGATIVE HSV: denies Breast pump Rx 08/01 MOD: anticipate pp contraception: TBD pap: 12/2020 PMH Tuberculosis: Treated PSH No prior surgery OB History SH Denies tobacco, alcohol, drugs Family History Mother: Breast cancer Father: Hypertension Maternal grandfather: Stroke Physical exam: General: Alert, oriented, no acute distress Head: Normal cephalic atraumatic Eyes: PERRLA, extraocular motions intact. Respiratory: Normal rate of respiration. No accessory muscle use, normal respiratory effort. Cardiovascular: Regular rate and rhythm Abdomen: Gravid, nontender, nondistended Extremities: Normal range of motion Neuro: Oriented x3. Normal movements Psych: Appropriate mood and affect. Normal judgment and insight SVE: 0/0/-3 FHT: 135 bpm baseline, moderate variability, accelerations present, no decelerations. [place]: Irregular Laboratory Last Values Membranes Rupture POSITIVE (NEGATIVE) A 10/28/21 01:57 Plan 31-year-old at 37 weeks 5 days gestation admitted for term labor/SROM 1. SROM -Admit to L&D, admit labs, epidural at patient's request, anticipate -We will start with 25 mcg misoprostol buccal E every 4 hours as patient has unfavorable cervix. We will switch to oxytocin if unable to tolerate misoprostol or when favorable. 2. Gestational diabetes -Has been diet controlled, will check glucose on admission 3. IUGR -Most recent EFW was 9.6 percentile on 10/24/2021. At that time estimated weight was 2523 g surveillance within normal limits. Had-normal PAULIE and UA Dopplers yesterday. 4. History of tuberculosis -Treated Meds/Allgy - Home Medications Home Medications: Ambulatory Orders Medication Instructions Recorded Confirmed Ascorbic Acid [Vitamin C] 250 mg PO DAILY 09/26/21 09/26/21 Ferrous Gluconate 324 mg PO BID 09/26/21 09/26/21 No122/Iron/Folic Acid 1 each PO DAILY 09/26/21 09/26/21 [ Multi Tablet] - Allergies Allergies/Adverse Reactions: Allergies Allergy/AdvReac Type Severity Reaction Status Date / Time No Known Drug Allergies Allergy Verified 09/26/21 14:49 Physical - Abdominal Exam Vital Signs: Temp Pulse Resp BP Pulse Ox 98.8 F 87 18 129/87 H 10/28/21 01:49 10/28/21 01:49 10/28/21 01:49 10/28/21 01:49
[2021-10-28] MEDS: miSOPROStoL 100 MCG TABLET BC SCH ×3 (03:14→12:45)
[2021-10-28] MEDS: SODIUM CHLORIDE FLUSH 0.9% 10 ML SYRINGE IVP SCH ×3 (03:15→22:56)
[2021-10-28 03:40] LABS: BASOPHILS % (AUTO) 0.4 %; EOSINOPHILS % (AUTO) 0.8 %; HCT - HEMATOCRIT 36.1 % (37.0-47.0); LYMPHOCYTES # (AUTO) 1.4 10^3/uL (1.5-3.5); LYMPHOCYTES % (AUTO) 26.6 %; MEAN CORPUSCULAR HEMOGLOBIN 30.8 pg (27.0-31.0); MEAN CORPUSCULAR HGB CONC 33.2 g/dL (32.0-36.0); MEAN CORPUSCULAR VOLUME 92.6 fL (81.0-99.0); MEAN PLATELET VOLUME 10.3 fL (7.9-10.8); MONOCYTES # (AUTO) 0.5 10^3/uL (0.0-1.0); NEUTROPHILS # (AUTO) 3.2 10^3/uL (1.5-6.6); NEUTROPHILS % (AUTO) 61.4 %; PLT - PLATELET COUNT 148 10^3/uL (130-450); RED CELL DISTRIBUTION WIDTH 13.2 % (12.0-15.0); WHITE BLOOD COUNT 5.2 x10^3/uL (4.8-10.8)
[2021-10-28 04:24] LABS: ALBUMIN 2.8 g/dL (3.2-5.5); ALBUMIN/GLOBULIN RATIO 0.9 (1.0-2.2); BILIRUBIN,TOTAL 0.4 mg/dL (0.2-1.0); CALCIUM 8.5 mg/dL (8.5-10.3); CREATININE 0.4 mg/dL (0.4-1.0); POTASSIUM 3.6 mmol/L (3.5-5.0); TOTAL PROTEIN 5.9 g/dL (6.7-8.2)
--- NOTE | 2021-10-28 08:57 | PROVIDER PROGRESS NOTE ---
Labor Progress Note - Uterine Monitoring Uterine Monitoring Mode: positive: External toco Contraction Frequency (min/apart): 6-8 Uterine Resting Tone: positive: Soft - Monitoring Monitor Mode: positive: External ultrasound Heart Rate Baseline: 150 Heart Rate Variability: positive: Moderate (6-25 bmp) Accelerations: positive: Present, 15x15 Decelerations: positive: None Strip Review: positive: Category I - Labor Progress Note Labor Progress Note/Additional Text: Received second dose of misoprsotol. Will continue at this time. Plan for SVE later today to assess cervical change and need for oxytocin. Category 1 tracing. Feels contractions more strongly, but still only 6-8 minutes apart.
[2021-10-28] MEDS ORDERED: LACTATED RINGERS 1,000 ML ONE (11:28)
[2021-10-28] MEDS ORDERED: LACTATED RINGERS 500 ML IV ONE (11:42)
[2021-10-28] MEDS ORDERED: ROPIVACAINE 0.2% 200 MG/100 ML BAG EP ONE (11:44)
[2021-10-28] MEDS ORDERED: ROPIVACAINE 0.2% 200 MG/100 ML BAG EP PRN (12:25)
[2021-10-28] MEDS ORDERED: METOCLOPRAMIDE 10 MG/2 ML VIAL IVP PRN (12:25)
[2021-10-28] MEDS ORDERED: diphenhydrAMINE INJ 50 MG/ML VIAL IVP PRN (12:25)
[2021-10-28] MEDS ORDERED: ONDANSETRON 4 MG/2 ML VIAL IVP PRN (12:25)
[2021-10-28] MEDS ORDERED: NALBUPHINE 10 MG/ML AMP IVP PRN (12:25)
[2021-10-28] MEDS ORDERED: ePHEDrine 50 MG/ML VIAL IVP PRN (12:25)
[2021-10-28] MEDS ORDERED: NALOXONE 0.4 MG/ML VIAL IVP PRN (12:25)
--- NOTE | 2021-10-28 12:33 | ANESTHESIA ---
Pre-Anesthesia VS, & Labs - Diagnosis labor epidural - Procedure epidural Vital Signs: Temp Pulse Resp BP Pulse Ox 36.8 C 100 18 140/75 H 100 10/28/21 11:02 10/28/21 11:02 10/28/21 11:02 10/28/21 11:02 10/28/21 11:02 Height: 5 ft Weight (kg): 53.977 kg Body Mass Index: 23.2 BMI Classification: Healthy weight - NPO >8 hours - Is Patient ?: Yes - Lab Results Current Lab Results: Laboratory Tests 10/28/21 10:36: POC Whole Bld Glucose 69 L 10/28/21 08:36: POC Whole Bld Glucose 105 H 10/28/21 04:06: Sodium 134 L, Potassium 3.6, Chloride 102, Carbon Dioxide 22, Anion Gap 10.0, BUN 10, Creatinine 0.4, Estimated GFR (MDRD) 187, Glucose 77, Calcium 8.5, Total Bilirubin 0.4, AST 21, ALT 34, Alkaline Phosphatase 151 H, Total Protein 5.9 L, Albumin 2.8 L, Globulin 3.1, Albumin/Globulin Ratio 0.9 L 10/28/21 02:50: WBC 5.2, RBC 3.90 L, Hgb 12.0, Hct 36.1 L, MCV 92.6, MCH 30.8, MCHC 33.2, RDW 13.2, Plt Count 148, MPV 10.3, Neut # (Auto) 3.2, Lymph # (Auto) 1.4 L, [place] # (Auto) 0.5, Eos # (Auto) 0.0, Baso # (Auto) 0.0, Absolute Nucleated RBC 0.00, Nucleated RBC % 0.0 10/28/21 02:50: Blood Type A POSITIVE, Antibody Screen NEGATIVE Fish Bones: 10/28/21 02:50 10/28/21 04:06 Home Medications and Allergies Active Medications Carboprost Tromethamine (Carboprost Tromethamine 250 Mcg/Ml Amp) 250 mcg IM .ONCE PRN PRN Reason: Hemorrhage Diphenhydramine HCl (Diphenhydramine Inj 50 Mg/Ml Vial) 12.5 - 25 mg IVP Q6HR PRN PRN Reason: ITCHING Ephedrine Sulfate (Ephedrine 50 Mg/Ml Vial) 5 mg IVP Q5M PRN PRN Reason: For SBP<100;give until SBP>100 Fentanyl (Fentanyl 100 Mcg/2 Ml Vial) 50 mcg IVP Q1H PRN PRN Reason: Severe Pain (score 7-10) Oxytocin/Sodium Chloride (Pitocin/Sodium Chloride) 500 mls @ 999 mls/hr IV PRN PRN; Protocol PRN Reason: POST- HEMORR PREVENTION Tranexamic Acid (Tranexamic 1,000 Mg/100ml-Nacl) 1,000 mg in 100 mls @ 600 mls/hr IV Q30M PRN PRN Reason: EBL >1200mL and within 3hr Ropivacaine (Naropin 0.2%) 200 mg in 100 mls @ 0 mls/hr EP PRN PRN; Protocol PRN Reason: PAIN Labetalol HCl (Labetalol 20 Mg/4 Ml Syringe) 20 mg IVP ONCE PRN; Protocol PRN Reason: SBP> or= 160 OR DBP> or= 110 Stop: 10/28/21 23:59 Lidocaine HCl (Lidocaine-Mpf 1% 30 Ml Vial) 30 ml ID ONCE PRN PRN Reason: PERINEAL REPAIR Stop: 10/29/21 02:29 Methylergonovine Maleate (Methylergonovine 0.2 Mg/Ml Vial) 0.2 mg IM .ONCE PRN PRN Reason: Hemorrhage Metoclopramide HCl (Metoclopramide 10 Mg/2 Ml Vial) 10 mg IVP Q6HR PRN PRN Reason: Nausea / Vomiting Misoprostol (Misoprostol 200 Mcg Tablet) 600 mcg BC .ONCE PRN PRN Reason: Hemorrhage Misoprostol (Misoprostol 200 Mcg Tablet) 800 mcg TN .ONCE PRN PRN Reason: Hemorrhage Misoprostol (Misoprostol 100 Mcg Tablet) 25 mcg BC Q4H RACHEL Last Admin: 10/28/21 07:39 Dose: 25 mcg Nalbuphine HCl (Nalbuphine 10 Mg/Ml Amp) 2.5 - 5 mg IVP Q4H PRN PRN Reason: ITCHING Naloxone HCl (Naloxone 0.4 Mg/Ml Vial) 0.1 mg IVP Q2M PRN PRN Reason: RR<8 Ondansetron HCl (Ondansetron 4 Mg/2 Ml Vial) 4 mg IVP Q6HR PRN PRN Reason: Nausea / Vomiting Oxytocin (Oxytocin 10 Unit/Ml Vial) 10 unit IM .ONCE PRN PRN Reason: Step One if no IV access. Sodium Chloride (Sodium Chloride Flush 0.9% 10 Ml Syringe) 10 ml IVP PRN PRN PRN Reason: NEEDED PER PROVIDER ORDERS Sodium Chloride (Sodium Chloride Flush 0.9% 10 Ml Syringe) 10 ml IVP Q8H RACHEL Last Admin: 10/28/21 10:04 Dose: 10 ml Terbutaline Sulfate (Terbutaline 1 Mg/Ml Vial) 0.25 mg SUBQ ONCE PRN PRN Reason: Tachystole Stop: 10/28/21 23:59 Ascorbic Acid [Vitamin C] 250 mg PO DAILY 09/26/21 Ferrous Gluconate 324 mg PO BID 09/26/21 No122/Iron/Folic Acid [ Multi Tablet] 1 each PO DAILY 09/26/21 Allergies/Adverse Reactions: Allergies Allergy/AdvReac Type Severity Reaction Status Date / Time No Known Drug Allergies Allergy Verified 09/26/21 14:49 Anes History & Medical History - Anesthetic History Anesthesia Complications: reports: No previous complications - Medical History Cardiovascular: reports: None Pulmonary: reports: None Smoking Status: Never smoker History of Cancer?: No - Obstetrical History : 1 Parity: 0 Complications: reports: Gestational diabetes, Other (IUGR) Exam General: Alert, Oriented x3, Cooperative Dental: WNL Mouth Opening: Greater than 4 Fingerbreadths Mallampati classification: II Thyromental Distance: 4-6 cm Respiratory: Lungs clear Cardiovascular: Regular rate Plan Anesthesia Type: Epidural Consent for Procedure(s) Verified and Reviewed: Yes Code Status: Attempt Resuscitation ASA classification: 2-Mild systemic disease Is this case an emergency?: No
--- NOTE | 2021-10-28 13:13 | PROVIDER PROGRESS NOTE ---
Subjective - Prog Note Date Prog Note Date: 10/28/21 Prog Note Time: 13:10 - Subjective Subjective: Delayed entry. S: Patient is a 31 yo at 37+5 wga here with SROM. complicated by well controlled A1DM. Recent Dx of SGA with EFW 9.6%. Normal PAULIE and dopplets. ROM at about 1:30 am. FT/70/-2 at presentation. No further SVE. Has had misoprosotl 25 mcg x2. Ready for thrid dose but desires epidural. Epidural placed without complication. PE: VS: 98.2 98 18 99% 112/71 GEN: NAD HEENT: NCAT CV: RR RESP: normal effort PELVIC: overt LOF. NEFG SVE /0/med/post EFM: 130 mod josefina 15x15 accels no decels TOCO: Q3-6 min A/P: 31 yo at 37+5 wga with SROM LABOR: -Has received miso 25 mcg BC x2 -Will administer one additional dose of miso and then transition to pitocin per protocol -Limit cervical exams given risk of prolonged rupture and remote from delivery FWB: Vertex, EFW 9.6%, GBS neg, Cat I tracing -CEFM -Low concern for SGA as high suspicion of constitutional etiology but will make Peds aware for dleivery PAIN: Epidural in place In-patient care Objective - Vital Signs/Intake & Output Vital Signs: Vital Signs x48h Temp Pulse Pulse Resp BP BP Pulse Ox 10/28/21 11:02 98.2 F 100 18 140/75 H 100 10/28/21 08:16 98.4 F 105 H 16 116/81 H - Lab Results Fish Bones: 10/28/21 02:50 10/28/21 04:06 Other Labs: Lab Results x24hrs 10/28/21 10/28/21 10/28/21 Range/Units 10:36 08:36 04:06 WBC (4.8-10.8) x10^3/uL RBC (4.20-5.40) 10^6/uL Hgb (12.0-16.0) g/dL Hct (37.0-47.0) % MCV (81.0-99.0) fL MCH (27.0-31.0) pg MCHC (32.0-36.0) g/dL RDW (12.0-15.0) % Plt Count (130-450) 10^3/uL MPV (7.9-10.8) fL Neut # (Auto) (1.5-6.6) 10^3/uL Lymph # (Auto) (1.5-3.5) 10^3/uL [place] # (Auto) (0.0-1.0) 10^3/uL Eos # (Auto) (0.0-0.7) 10^3/uL Baso # (Auto) (0.0-0.1) 10^3/uL Absolute Nucleated RBC x10^3/uL Nucleated RBC % /100WBC Sodium 134 L (135-145) mmol/L Potassium 3.6 (3.5-5.0) mmol/L Chloride 102 (101-111) mmol/L Carbon Dioxide 22 (21-32) mmol/L Anion Gap 10.0 (6-13) BUN 10 (6-20) mg/dL Creatinine 0.4 (0.4-1.0) mg/dL Estimated GFR (MDRD) 187 (>89) Glucose 77 (70-100) mg/dL POC Whole Bld Glucose 69 L 105 H (70 - 100) mg/dL Calcium 8.5 (8.5-10.3) mg/dL Total Bilirubin 0.4 (0.2-1.0) mg/dL AST 21 (10-42) IU/L ALT 34 (10-60) IU/L Alkaline Phosphatase 151 H (42-121) IU/L Total Protein 5.9 L (6.7-8.2) g/dL Albumin 2.8 L (3.2-5.5) g/dL Globulin 3.1 (2.1-4.2) g/dL Albumin/Globulin Ratio 0.9 L (1.0-2.2) Membranes Rupture (NEGATIVE) Blood Type Antibody Screen 10/28/21 10/28/21 10/28/21 Range/Units 02:50 02:50 01:57 WBC 5.2 (4.8-10.8) x10^3/uL RBC 3.90 L (4.20-5.40) 10^6/uL Hgb 12.0 (12.0-16.0) g/dL Hct 36.1 L (37.0-47.0) % MCV 92.6 (81.0-99.0) fL MCH 30.8 (27.0-31.0) pg MCHC 33.2 (32.0-36.0) g/dL RDW 13.2 (12.0-15.0) % Plt Count 148 (130-450) 10^3/uL MPV 10.3 (7.9-10.8) fL Neut # (Auto) 3.2 (1.5-6.6) 10^3/uL Lymph # (Auto) 1.4 L (1.5-3.5) 10^3/uL [place] # (Auto) 0.5 (0.0-1.0) 10^3/uL Eos # (Auto) 0.0 (0.0-0.7) 10^3/uL Baso # (Auto) 0.0 (0.0-0.1) 10^3/uL Absolute Nucleated RBC 0.00 x10^3/uL Nucleated RBC % 0.0 /100WBC Sodium (135-145) mmol/L Potassium (3.5-5.0) mmol/L Chloride (101-111) mmol/L Carbon Dioxide (21-32) mmol/L Anion Gap (6-13) BUN (6-20) mg/dL Creatinine (0.4-1.0) mg/dL Estimated GFR (MDRD) (>89) Glucose (70-100) mg/dL POC Whole Bld Glucose (70 - 100) mg/dL Calcium (8.5-10.3) mg/dL Total Bilirubin (0.2-1.0) mg/dL AST (10-42) IU/L ALT (10-60) IU/L Alkaline Phosphatase (42-121) IU/L Total Protein (6.7-8.2) g/dL Albumin (3.2-5.5) g/dL Globulin (2.1-4.2) g/dL Albumin/Globulin Ratio (1.0-2.2) Membranes Rupture POSITIVE A (NEGATIVE) Blood Type A POSITIVE Antibody Screen NEGATIVE
--- NOTE | 2021-10-28 15:30 | PROVIDER PROGRESS NOTE ---
Subjective - Prog Note Date Prog Note Date: 10/28/21 Prog Note Time: 15:29 - Subjective Subjective: patient feeling rectal pressure and had bowel movement. baby fell of of tracing SVE C/C/+2 Doppler re-positions EFM 150s mod josefina Cat I tracing Preparing for pushing/delivery Objective - Vital Signs/Intake & Output Vital Signs: Vital Signs x48h Temp Pulse Pulse Resp BP BP Pulse Ox 10/28/21 14:10 95 20 109/69 99 10/28/21 11:02 98.2 F 100 18 140/75 H 100 10/28/21 08:16 98.4 F 105 H 16 116/81 H Intake & Output: Intake & Output 10/25/21 10/26/21 10/27/21 10/28/21 23:59 23:59 23:59 23:59 Output Total 200 Balance -200 - Lab Results Fish Bones: 10/28/21 02:50 10/28/21 04:06 Other Labs: Lab Results x24hrs 10/28/21 10/28/21 10/28/21 Range/Units 14:02 10:36 08:36 WBC (4.8-10.8) x10^3/uL RBC (4.20-5.40) 10^6/uL Hgb (12.0-16.0) g/dL Hct (37.0-47.0) % MCV (81.0-99.0) fL MCH (27.0-31.0) pg MCHC (32.0-36.0) g/dL RDW (12.0-15.0) % Plt Count (130-450) 10^3/uL MPV (7.9-10.8) fL Neut # (Auto) (1.5-6.6) 10^3/uL Lymph # (Auto) (1.5-3.5) 10^3/uL [place] # (Auto) (0.0-1.0) 10^3/uL Eos # (Auto) (0.0-0.7) 10^3/uL Baso # (Auto) (0.0-0.1) 10^3/uL Absolute Nucleated RBC x10^3/uL Nucleated RBC % /100WBC Sodium (135-145) mmol/L Potassium (3.5-5.0) mmol/L Chloride (101-111) mmol/L Carbon Dioxide (21-32) mmol/L Anion Gap (6-13) BUN (6-20) mg/dL Creatinine (0.4-1.0) mg/dL Estimated GFR (MDRD) (>89) Glucose (70-100) mg/dL POC Whole Bld Glucose 92 69 L 105 H (70 - 100) mg/dL Calcium (8.5-10.3) mg/dL Total Bilirubin (0.2-1.0) mg/dL AST (10-42) IU/L ALT (10-60) IU/L Alkaline Phosphatase (42-121) IU/L Total Protein (6.7-8.2) g/dL Albumin (3.2-5.5) g/dL Globulin (2.1-4.2) g/dL Albumin/Globulin Ratio (1.0-2.2) Membranes Rupture (NEGATIVE) Blood Type Antibody Screen 10/28/21 10/28/21 10/28/21 Range/Units 04:06 02:50 02:50 WBC 5.2 (4.8-10.8) x10^3/uL RBC 3.90 L (4.20-5.40) 10^6/uL Hgb 12.0 (12.0-16.0) g/dL Hct 36.1 L (37.0-47.0) % MCV 92.6 (81.0-99.0) fL MCH 30.8 (27.0-31.0) pg MCHC 33.2 (32.0-36.0) g/dL RDW 13.2 (12.0-15.0) % Plt Count 148 (130-450) 10^3/uL MPV 10.3 (7.9-10.8) fL Neut # (Auto) 3.2 (1.5-6.6) 10^3/uL Lymph # (Auto) 1.4 L (1.5-3.5) 10^3/uL [place] # (Auto) 0.5 (0.0-1.0) 10^3/uL Eos # (Auto) 0.0 (0.0-0.7) 10^3/uL Baso # (Auto) 0.0 (0.0-0.1) 10^3/uL Absolute Nucleated RBC 0.00 x10^3/uL Nucleated RBC % 0.0 /100WBC Sodium 134 L (135-145) mmol/L Potassium 3.6 (3.5-5.0) mmol/L Chloride 102 (101-111) mmol/L Carbon Dioxide 22 (21-32) mmol/L Anion Gap 10.0 (6-13) BUN 10 (6-20) mg/dL Creatinine 0.4 (0.4-1.0) mg/dL Estimated GFR (MDRD) 187 (>89) Glucose 77 (70-100) mg/dL POC Whole Bld Glucose (70 - 100) mg/dL Calcium 8.5 (8.5-10.3) mg/dL Total Bilirubin 0.4 (0.2-1.0) mg/dL AST 21 (10-42) IU/L ALT 34 (10-60) IU/L Alkaline Phosphatase 151 H (42-121) IU/L Total Protein 5.9 L (6.7-8.2) g/dL Albumin 2.8 L (3.2-5.5) g/dL Globulin 3.1 (2.1-4.2) g/dL Albumin/Globulin Ratio 0.9 L (1.0-2.2) Membranes Rupture (NEGATIVE) Blood Type A POSITIVE Antibody Screen NEGATIVE 10/28/21 Range/Units 01:57 WBC (4.8-10.8) x10^3/uL RBC (4.20-5.40) 10^6/uL Hgb (12.0-16.0) g/dL Hct (37.0-47.0) % MCV (81.0-99.0) fL MCH (27.0-31.0) pg MCHC (32.0-36.0) g/dL RDW (12.0-15.0) % Plt Count (130-450) 10^3/uL MPV (7.9-10.8) fL Neut # (Auto) (1.5-6.6) 10^3/uL Lymph # (Auto) (1.5-3.5) 10^3/uL [place] # (Auto) (0.0-1.0) 10^3/uL Eos # (Auto) (0.0-0.7) 10^3/uL Baso # (Auto) (0.0-0.1) 10^3/uL Absolute Nucleated RBC x10^3/uL Nucleated RBC % /100WBC Sodium (135-145) mmol/L Potassium (3.5-5.0) mmol/L Chloride (101-111) mmol/L Carbon Dioxide (21-32) mmol/L Anion Gap (6-13) BUN (6-20) mg/dL Creatinine (0.4-1.0) mg/dL Estimated GFR (MDRD) (>89) Glucose (70-100) mg/dL POC Whole Bld Glucose (70 - 100) mg/dL Calcium (8.5-10.3) mg/dL Total Bilirubin (0.2-1.0) mg/dL AST (10-42) IU/L ALT (10-60) IU/L Alkaline Phosphatase (42-121) IU/L Total Protein (6.7-8.2) g/dL Albumin (3.2-5.5) g/dL Globulin (2.1-4.2) g/dL Albumin/Globulin Ratio (1.0-2.2) Membranes Rupture POSITIVE A (NEGATIVE) Blood Type Antibody Screen
[2021-10-28] MEDS ORDERED: LACTATED RINGERS 1,000 ML IV ONE (17:09)
[2021-10-28] MEDS ORDERED: ceFAZolin 2 GM in SODIUM CHLORIDE 0.9% 100ML 100 ML IV SCH (17:30)
[2021-10-28 17:34] LABS: HCT - HEMATOCRIT 36.1 % (37.0-47.0); HGB - HEMOGLOBIN 11.9 g/dL (12.0-16.0); MEAN CORPUSCULAR HEMOGLOBIN 30.7 pg (27.0-31.0); MEAN CORPUSCULAR VOLUME 93.3 fL (81.0-99.0); MEAN PLATELET VOLUME 9.9 fL (7.9-10.8); RED BLOOD COUNT 3.87 10^6/uL (4.20-5.40); RED CELL DISTRIBUTION WIDTH 13.2 % (12.0-15.0); WHITE BLOOD COUNT 14.3 x10^3/uL (4.8-10.8)
[2021-10-28] MEDS ORDERED: HYDROCORTISONE 1% CREAM 28 GM TUBE PR PRN (20:20)
[2021-10-28] MEDS ORDERED: ONDANSETRON ODT 4 MG TABLET TL PRN (20:20)
[2021-10-28] MEDS ORDERED: SIMETHICONE CHEW 80 MG TABLET PO PRN (20:20)
--- NOTE | 2021-10-28 20:24 | DELIVERY NOTE ---
Delivery Note - Infant Delivery Method Infant Delivery Method: positive: Spontaneous vaginal delivery - Cervical Ripening Method Cervical Ripening Method: positive: Misoprostil - Presentation Presentation: positive: Vertex, BENJI - right occiput anterior - Nuchal Cord Nuchal Cord: positive: Present, Reduced - Anesthetic Anesthetic Type: - Amniotic Fluid Description Amniotic Fluid Description: positive: Clear - Episiotomy Type Episiotomy Type: positive: None - Laceration Laceration: positive: 2nd degree, Other (Partial tearing of anal sphincter without complete transection) - Suture Suture Type: positive: Vicryl Suture Size: positive: 2-0, 3-0 - Delivery Outcome Delivery Outcome: positive: Livebirth - [place] : positive: Placed in direct skin contact with mother, Stimulated, Warmed, [place] used sex: positive: Male - Cord Cord: positive: 3 vessels - Placenta Placenta: positive: Intact, Expressed - Estimated Blood Loss Estimated Blood Loss (in cc): 1,675 (QBL) - Post Delivery Events Post Delivery Events: positive: Hemorrhage - Delivery Comments (Free Text/Narrative) Delivery Comments (Free Text/Narrative): STAGE I: Patient is a 31 yo at 37+5 wga here with SROM. complicated by well controlled A1DM. Recent Dx of SGA with EFW 9.5%. Normal PAULIE and dopplers. ROM at about 1:30 am. Clear fluid. FT/70/-2 at presentation. Received misoprostol 25 mcg x3.No pitocin augmentation indicated. Epidural for pain management. GBS negative. Complete at 15:22. Category I tracing throughout Stage I labor. STAGE II: Patient started pushing at 15:40. She pushed well for 30 minutes to deliver a viable male infant from vertex presentation. Infant presented in BENJI presentation with left shoulder anterior. Delivered wihtout difficulty. Nuchal cord noted and reduced over infants head. Infant was delivered to maternal chest. Cord was clamped x2 and cut after pulsations had ceased. Apgars were 9/9. Weight 2891g. STAGE III: Placenta delivered with manual expression. It was examined and found to be intact. Perineum was examined and patient had a midline 2nd laceration with partial rupture on the anal sphincter. The sphincter muscle remained intact but was reinforced with interrupted sutures placed in PISA fashion. Rectal exam was performed before and after the reinforcement and no suture was noted in rectum. During the course of the repair, patient was noted to have heaver than usual bleeding. Lower uterine segment was cleared of clots and trailing membrane x2. Patient was on pitocin. She also received misoprostol 600 mcg BC x1 at 16:42. Bleeding continued at a moderate pace. Tranexamnc acid was given at 16:53. The c ervix was explored with ring forceps. A manual sweep of the uterus was performed. Methergine 0.2 mg IM was also administered. Superficial bleeding in the vaginal vault was secured with figure of 8 sutures using 0-Vicryl. Finally, the vagina was packed with a pressure dressing. Bleeding subsided. QBL was calculated during the course of on-going hemorrhage. QBL 1675. Patient was given a one liter fluid bolus with LR. HCT at 17:28 was unchanged from admission. Will reassess CBC at 22:00.
[2021-10-28] MEDS: DOCUSATE SODIUM 100 MG CAPSULE PO PRN (21:41)
[2021-10-28 22:18] LABS: HCT - HEMATOCRIT 30.6 % (37.0-47.0); HGB - HEMOGLOBIN 10.6 g/dL (12.0-16.0); MEAN CORPUSCULAR HEMOGLOBIN 31.6 pg (27.0-31.0); MEAN CORPUSCULAR HGB CONC 34.6 g/dL (32.0-36.0); MEAN CORPUSCULAR VOLUME 91.3 fL (81.0-99.0); MEAN PLATELET VOLUME 9.9 fL (7.9-10.8); RED BLOOD COUNT 3.35 10^6/uL (4.20-5.40); RED CELL DISTRIBUTION WIDTH 13.2 % (12.0-15.0); WHITE BLOOD COUNT 14.1 x10^3/uL (4.8-10.8)
[2021-10-29] MEDS: IBUPROFEN 600 MG TABLET PO PRN ×4 (02:33→20:22)
[2021-10-29 06:35] LABS: BASOPHILS % (AUTO) 0.2 %; EOSINOPHILS % (AUTO) 0.1 %; HGB - HEMOGLOBIN 9.5 g/dL (12.0-16.0); LYMPHOCYTES # (AUTO) 1.3 10^3/uL (1.5-3.5); LYMPHOCYTES % (AUTO) 10.5 %; MEAN CORPUSCULAR HEMOGLOBIN 31.3 pg (27.0-31.0); MEAN CORPUSCULAR HGB CONC 33.9 g/dL (32.0-36.0); MEAN CORPUSCULAR VOLUME 92.1 fL (81.0-99.0); MEAN PLATELET VOLUME 10.2 fL (7.9-10.8); MONOCYTES % (AUTO) 7.9 %; NEUTROPHILS # (AUTO) 9.9 10^3/uL (1.5-6.6); NEUTROPHILS % (AUTO) 80.8 %; PLT - PLATELET COUNT 122 10^3/uL (130-450); RED BLOOD COUNT 3.04 10^6/uL (4.20-5.40); RED CELL DISTRIBUTION WIDTH 13.3 % (12.0-15.0); WHITE BLOOD COUNT 12.2 x10^3/uL (4.8-10.8)
[2021-10-29] MEDS: LACTATED RINGERS 1,000 ML IV SCH ×2 (07:18→17:35)
[2021-10-29] MEDS: DOCUSATE SODIUM 100 MG CAPSULE PO PRN ×2 (08:34→20:23)
[2021-10-29] MEDS ORDERED: FERRIC GLUCONATE 125 MG in SODIUM CHLORIDE 0.9% 100ML 100 ML IV ONE (10:52)
--- NOTE | 2021-10-29 12:24 | PROVIDER PROGRESS NOTE ---
Subjective - Prog Note Date Prog Note Date: 10/29/21 Prog Note Time: 12:21 - Subjective Subjective: Patient is a 31 yo now PPD#1 s/p complicated by PPH Patient is doing well. Pain is well managed. Tolerating po. Voiding. Up and ambulating. Working on . No dizziness or lightheadedness. Objective - Vital Signs/Intake & Output Reviewed Vital Signs: Yes Vital Signs: Vital Signs x48h Temp Pulse Resp BP Pulse Ox 10/29/21 08:35 98.1 F 96 16 105/69 98 Intake & Output: Intake & Output 10/26/21 10/27/21 10/28/21 10/29/21 23:59 23:59 23:59 23:59 Intake Total 2199.5 1110 Output Total 1315 630 Balance 884.5 480 - Objective General Appearance: positive: No acute distress Respiratory: positive: No respiratory distress, Breath sounds nml Cardiovascular: positive: Regular rate & rhythm Abdomen: positive: Non-tender, Other (S&NT/ND, FF below umbi) Skin: positive: Color nml Extremities: positive: Non-tender Neurologic/Psychiatric: positive: Oriented x3 - Lab Results Fish Bones: 10/29/21 06:07 10/28/21 04:06 Other Labs: Lab Results x24hrs 10/29/21 10/28/21 10/28/21 Range/Units 06:07 22:12 17:28 WBC 12.2 H 14.1 H 14.3 H (4.8-10.8) x10^3/uL RBC 3.04 L 3.35 L 3.87 L (4.20-5.40) 10^6/uL Hgb 9.5 L 10.6 L 11.9 L (12.0-16.0) g/dL Hct 28.0 L 30.6 L 36.1 L (37.0-47.0) % MCV 92.1 91.3 93.3 (81.0-99.0) fL MCH 31.3 H 31.6 H 30.7 (27.0-31.0) pg MCHC 33.9 34.6 33.0 (32.0-36.0) g/dL RDW 13.3 13.2 13.2 (12.0-15.0) % Plt Count 122 L 144 164 (130-450) 10^3/uL MPV 10.2 9.9 9.9 (7.9-10.8) fL Neut # (Auto) 9.9 H (1.5-6.6) 10^3/uL Lymph # (Auto) 1.3 L (1.5-3.5) 10^3/uL [place] # (Auto) 1.0 (0.0-1.0) 10^3/uL Eos # (Auto) 0.0 (0.0-0.7) 10^3/uL Baso # (Auto) 0.0 (0.0-0.1) 10^3/uL Absolute Nucleated RBC 0.00 x10^3/uL Nucleated RBC % 0.0 /100WBC POC Whole Bld Glucose (70 - 100) mg/dL Blood Type Antibody Screen Crossmatch IS Only 10/28/21 10/28/21 Range/Units 14:02 02:50 WBC (4.8-10.8) x10^3/uL RBC (4.20-5.40) 10^6/uL Hgb (12.0-16.0) g/dL Hct (37.0-47.0) % MCV (81.0-99.0) fL MCH (27.0-31.0) pg MCHC (32.0-36.0) g/dL RDW (12.0-15.0) % Plt Count (130-450) 10^3/uL MPV (7.9-10.8) fL Neut # (Auto) (1.5-6.6) 10^3/uL Lymph # (Auto) (1.5-3.5) 10^3/uL [place] # (Auto) (0.0-1.0) 10^3/uL Eos # (Auto) (0.0-0.7) 10^3/uL Baso # (Auto) (0.0-0.1) 10^3/uL Absolute Nucleated RBC x10^3/uL Nucleated RBC % /100WBC POC Whole Bld Glucose 92 (70 - 100) mg/dL Blood Type A POSITIVE Antibody Screen NEGATIVE Crossmatch IS Only See Detail Assessment/Plan - Problem List (1) Vaginal delivery Impression: Doing well Will continue in-patient care for support and continued monitoring of anemia -Ferric gluconate IV today Patient is ok with keeping IV in place. OK to remove upon patient request or it is no longer functional Anticipate DC home tomorrow
--- NOTE | 2021-10-29 22:53 | Discharge Plan ---
Discharge Plan Problem Reviewed?: Yes Disposition: Home, Self Care Condition: Good Prescriptions: Acetaminophen [Acetaminophen Extra Strength] 1,000 mg PO Q8H PRN #60 tablet PRN Reason: Pain Docusate Sodium 100Mg Capsule [Colace 100Mg Capsule] 100 - 200 mg PO BID PRN #60 cap PRN Reason: Constipation Ferrous Gluconate 324 mg PO BID #60 tablet Ibuprofen [Motrin] 600 mg PO Q6H PRN #60 tab PRN Reason: Pain Ascorbic Acid [Vitamin C] 250 mg PO BID 2 Days #60 tablet Diet: Regular Additional Instructions or Follow Up instructions: Nothing in the vagina for 6 weeks: No intercourse, tampons, douching Call for: -Fever greater than 100.5 -Pain that does not improve with pain medication -Heavy bleeding in which you are soaking a pad an hour for 2 hours in a row -Pain in the legs (especially one sided), swelling in one leg and not the other, or difficulty/pain with breathing. No tub baths or hot tubs for 4 weeks Ibuprofen 600 mg by mouth every 6 hours as needed for pain Acetaminophen 500-1000 mg by mouth every 8 hours as needed for pain Docusate 100-200 mg by mouth twice a day as needed for constipation Iron 325 mg by mouth twice a day Vitamin C 250 mg by mouth twice a day with iron No Smoking: If you smoke, Please STOP! Call for help. Follow-up with: Katelyn Garza MD [Provider Admit Priv/Credential] -
[2021-10-30] MEDS: ACETAMINOPHEN 500 MG TABLET PO PRN ×2 (02:09→10:16)
[2021-10-30] MEDS ORDERED: FERRIC GLUCONATE 125 MG in SODIUM CHLORIDE 0.9% 100ML 100 ML IV ONE (08:00)
--- NOTE | 2021-10-30 09:11 | DISCHARGE SUMMARY ---
Discharge Summary Discharge Date: 10/30/21 Discharging Provider: Greg Code Status: Attempt Resuscitation Condition at Discharge: Good Discharge Disposition: 01 Home, Self Care - DIAGNOSES Admission Diagnoses: IUP at 37+5 wga Spontaneous rupture of membranes Suspected SGA/restricted growth A1 gestational diabetes Discharge Diagnoses with Status of Each Condition: Same and delivery of term gestation hemorrhage Acute blood loss anemia - HPI History of Present Illness: 31-year-old G1, P0 at 37 weeks 5 days gestation presented 10/28/21 with rupture membranes at approximately 0130. She felt a gush of fluid and some pink-tinged mucus she has some tightening, but no significant. Mild contractions unchanges in characteristics since about 2 days ago during her visit and yesterday during her monitoring. Good movement. No ACOSTA/BV or RUQP. No vaginal bleeding. Course GDM: Diet controlled at present SGA: - growth us for week of 10/24/21 was 9.5 percentile - surveillance yesterday was within normal limits with normal PAULIE and UA dopplers. LMP: 02/06/2021 YAW by LMP: 11/13/2021 Initial U/S: at 9.3 c/w LMP yaw 11/14/2021 Vertex by bedside us A+/Rub immune VZV immune Genetic testing: CF, SMA, and Fragile X all negative QUAD -negative FAS: wnl, 43%ile, 3.3 cm CL, posterior, LL placenta 0.9 cm form cervical os F/U US completed for placenta location- 2cm from interal OS. Heart well visualized. Glucola: 08/01 result 180 3 Hour GTT : 08/22/2021 fasting 79 197, 189, 151 Influenza: 08/01 Covid: Moderna complete 12/2020 Second 01/18/21. booster moderna 09/12/21 TDAP 08/29/21 GBS : 10/19/2021 NEGATIVE HSV: denies Breast pump Rx 08/01 MOD: anticipate pp contraception: TBD pap: 12/2020 - HOSPITAL COURSE Hospital Course: STAGE I: Patient is a 31 yo at 37+5 wga admitted 10/28/21 with SROM. complicated by well controlled A1DM. Recent Dx of SGA with EFW 9.5%. Normal PAULIE and dopplers. ROM at about 1:30 am. Clear fluid. FT/70/-2 at presentation. Received misoprostol 25 mcg x3.No pitocin augmentation indicated. Epidural for pain management. GBS negative. Complete at 15:22. Category I tracing throughout Stage I labor. STAGE II: Patient started pushing at 15:40. She pushed well for 30 minutes to deliver a viable male from vertex presentation. presented in BENJI presentation with left shoulder anterior. Delivered wihtout difficulty. Nuchal cord noted and reduced over infants head. Infant was delivered to maternal chest. Cord was clamped x2 and cut after pulsations had ceased. Apgars were 9/9. Weight 2891g. STAGE III: Placenta delivered with manual expression. It was examined and found to be intact. Perineum was examined and patient had a midline 2nd laceration with partial rupture on the anal sphincter. The sphincter muscle remained intact but was reinforced with interrupted sutures placed in PISA fashion. Rectal exam was performed before and after the reinforcement and no suture was noted in rectum. During the course of the repair, patient was noted to have heaver than usual bleeding. Lower uterine segment was cleared of clots and trailing membrane x2. Patient was on pitocin. She also received misoprostol 600 mcg BC x1 at 16:42. Bleeding continued at a moderate pace. Tranexamic acid was given at 16:53. The cervix was explored with ring forceps. A manual sweep of the uterus was performed. Methergine 0.2 mg IM was also administered. Superficial bleeding in the vaginal vault was secured with figure of 8 sutures using 0-Vicryl. Finally, the vagina was packed with a pressure dressing. Bleeding subsided. QBL was calculated during the course of on-going hemorrhage. QBL 1675. Patient was given a one liter fluid bolus with LR. She was given cefazolin 2g IV x1 for ppx given manual sweep of the uterus. HCT at 17:28 was unchanged from admission at 36.1. Repeat HCT at 22:12 was 30.6. PPD#1, HCT was 28.0 and patient was without symptoms. She received ferric gluc bruno 125 mg IC on PPD#1 and PPD#2. course was otherwise uncomplicated. Discharged to home with fu in one week on PPD#2. Rh positive/Rub imm Male infant, Apgars 9/9, Weight 2891g ADMITTING PROVIDER: Kulwant LABORING PROVIDER: Greg DELIVERING PROVIDER: Greg DISCHARGING PROVIDER: Greg - ALLERGIES Allergies/Adverse Reactions: Allergies Allergy/AdvReac Type Severity Reaction Status Date / Time No Known Drug Allergies Allergy Verified 09/26/21 14:49 - MEDICATIONS Home Medications: Ambulatory Orders Medication Instructions Recorded Confirmed Ascorbic Acid [Vitamin C] 250 mg PO DAILY 09/26/21 09/26/21 Ferrous Gluconate 324 mg PO BID 09/26/21 09/26/21 No122/Iron/Folic Acid 1 each PO DAILY 09/26/21 09/26/21 [ Multi Tablet] Acetaminophen [Acetaminophen Extra 1,000 mg PO Q8H PRN #60 tablet 10/29/21 Strength] Ascorbic Acid [Vitamin C] 250 mg PO BID 2 Days #60 tablet 10/29/21 Docusate Sodium 100Mg Capsule 100 - 200 mg PO BID PRN #60 cap 10/29/21 [Colace 100Mg Capsule] Ferrous Gluconate 324 mg PO BID #60 tablet 10/29/21 Ibuprofen [Motrin] 600 mg PO Q6H PRN #60 tab 10/29/21 - PHYSICAL EXAM AT DISCHARGE General Appearance: positive: No acute distress Neck: positive: Nml inspection Respiratory: positive: No respiratory distress Cardiovascular: positive: Other (RR) Peripheral Pulses: positive: 2+ Abdomen: positive: Non-tender, Other (FF below umbi) Skin: positive: Color nml Extremities: positive: Non-tender, No pedal edema Neurologic/Psychiatric: positive: Oriented x3 - LABS Result Diagrams: 10/29/21 06:07 10/28/21 04:06 - FOLLOW UP Follow Up: [address] Garza - TIME SPENT Time Spent in Discharge (Minutes): 30
[2021-10-30 09:20] VITALS: BP 106/71
[2021-10-30] MEDS: DOCUSATE SODIUM 100 MG CAPSULE PO PRN (10:16)
--- NOTE | 2021-10-30 15:15 | Labor Flowsheet ---
Labor Flowsheet Datetime Report Generated by CPN: 10/30/2021 15:14 Datetime: 10/30/2021 08:42 VITAL SIGNS NBP Sys/[place]/Mean (mmHg): 106 : 71 : 79 Pulse: 92 Datetime: 10/29/2021 17:35 SpO2 (%): 98 Datetime: 10/28/2021 18:19 Temperature (C): 38.3 Datetime: 10/28/2021 16:40 Stage of : Recovery Datetime: 10/28/2021 16:10 UTERINE ACTIVITY Monitor Mode: Palpation Frequency (min): 2-4 Quality: Strong Duration (sec): 60-110 Pattern: Normal: <= 5 Contractions in 10 Minutes Resting Tone (Palpate): Relaxed ASSESSMENT A Monitor Mode: Telemetry FHR Baseline Rate : 145 Variability: Moderate 6-25 bpm Accelerations: None Category: Category II Comments: FHR Decels to 90 with pushing, with prompt return to baseline Datetime: 10/28/2021 16:05 LaborFlag: Labor Datetime: 10/28/2021 15:40 STAGE 2 Pushing: Coached on Pushing; Urge to Push Pushing Position: Pushing Lithotomy Pushing Progress: Descent with Pushing Datetime: 10/28/2021 15:30 Monitor Interventions for UA: [place] Adjusted Monitor Interventions for FHR: Ultrasound Adjusted Decelerations: None Actions for Decelerations: Side to Side Datetime: 10/28/2021 15:24 Patient Position/Activity: Semi-Fowlers Datetime: 10/28/2021 15:22 VAGINAL EXAM Dilatation (cm): 10.0 Effacement (%): 100 Exam by: Dr. Garza Datetime: 10/28/2021 15:10 COMMUNICATION Communication: Provider at Bedside Provider Notified (Name): Greg Notification Reason: Status Update; Status; Labor Status Communication Comments: Increase in pain/pressure not relieved by epidural, large spontaneous BM Datetime: 10/28/2021 15:08 Respirations: 18 Patient Care Comments: Repositioning patient, noted large BM. Datetime: 10/28/2021 13:10 I/O Interventions: Castañeda Cath Inserted Datetime: 10/28/2021 12:46 MEDICATIONS Cervical Ripening Agents: Cytotec @ 25 Datetime: 10/28/2021 12:36 Station: 0 Vaginal Bleeding: Normal Show Cervix, Consistency: Moderate Cervix, Position: Posterior Datetime: 10/28/2021 12:31 PAIN Pain Scale: 5 Datetime: 10/28/2021 12:08 Epidural Procedure Other: Pump Started Datetime: 10/28/2021 12:05 Epidural Procedure: Loading Dose Datetime: 10/28/2021 11:52 ANESTHESIA Anesthesia Plans: Epidural Epidural Positioning: Sitting Datetime: 10/28/2021 11:25 Anesthesia Comments: Francesca Aube HEAVY COIL WINDER at bedside Datetime: 10/28/2021 11:24 PATIENT CARE IV/Blood Work: IV Bolus Started; IV Bolus Given ml @ 500 Datetime: 10/28/2021 11:20 SBAR Notable Communications: Pain 8/10, requesting epidural. Next dose Miso due at approx 1130. Datetime: 10/28/2021 10:45 Pain Presence: Intermittent Pain Type: Cramping; Contraction Pain Location: Back Pain Goal: 7 Pain Relief Measures: Comfort Measures Pain Coping: Talking Through Contractions Datetime: 10/28/2021 10:38 Temperature Route: Oral Datetime: 10/28/2021 08:36 Bedside Blood Glucose: 105 Vital Sign Comments: Post Prandial Datetime: 10/28/2021 06:00 FHR Baseline Changes: No Baseline Change Datetime: 10/28/2021 04:14 Membranes Ruptured Date/Time: 10/28/2021 00:45 Membranes Rupture Method: Spontaneous Amniotic Fluid Color: Clear Amniotic Fluid Amount: Small Amniotic Fluid Odor: None Datetime: 10/28/2021 04:00 Oxygen Method: Room Air
== END 2021-10-30 15:13 | disposition home or self-care (01) | DRG 806 ==
LOC: WFO 01:35 → FBP 01:36 → WFO 02:28 → FBP 02:29
PROVIDERS: ADMIT Obstetrics & Gynecology; ATTEND Obstetrics & Gynecology
PROC: 0KQM0ZZ Repair Perineum Muscle, Open Approach (ICD-10-PCS; principal; 2021-10-28)
PROC: 10E0XZZ Delivery of Products of Conception, External Approach (ICD-10-PCS; 2021-10-28)
PROC: 2Y44X5Z Packing of Female Genital Tract using Packing Material (ICD-10-PCS; 2021-10-28)
DX: O24.420 Gestational diabetes mellitus in childbirth, diet controlled (principal); D62 Acute posthemorrhagic anemia; Z37.0 Single live birth; O72.2 Delayed and secondary postpartum hemorrhage; O69.81X0 Labor and delivery complicated by cord around neck, without compression, not applicable or unspecified; O70.1 Second degree perineal laceration during delivery; Z3A.37 37 weeks gestation of pregnancy; O36.5930 Maternal care for other known or suspected poor fetal growth, third trimester, not applicable or unspecified
CPT/HCPCS: 36415; 80053; 84112; 85025; 85027; 86850; 86900; 86901; 86920; 99215; A9270; J2210; J2916; J7120; 59025

== ENCOUNTER 2021-12-25 21:05 | Outpatient (CLI) | payer BC ==
[2021-12-25 21:29] LABS: GTT GLUCOSE,FASTING 82 mg/dL (70-100)
== END 2021-12-25 21:06 | disposition home or self-care (01) ==
LOC: LAB 21:05
PROVIDERS: ATTEND Obstetrics & Gynecology
DX: O24.419 Gestational diabetes mellitus in pregnancy, unspecified control (principal)
CPT/HCPCS: 36415; 82951

== ENCOUNTER 2022-04-03 09:13 | Outpatient (CLI) | payer BC ==
[2022-04-03 12:01] LABS: BASOPHILS # (AUTO) 0.1 10^3/uL (0.0-0.1); BASOPHILS % (AUTO) 1.4 %; EOSINOPHILS # (AUTO) 0.1 10^3/uL (0.0-0.7); EOSINOPHILS % (AUTO) 2.1 %; HCT - HEMATOCRIT 41.8 % (37.0-47.0); HGB - HEMOGLOBIN 13.3 g/dL (12.0-16.0); LYMPHOCYTES # (AUTO) 1.5 10^3/uL (1.5-3.5); LYMPHOCYTES % (AUTO) 34.2 %; MEAN CORPUSCULAR HGB CONC 31.8 g/dL (32.0-36.0); MEAN CORPUSCULAR VOLUME 91.3 fL (81.0-99.0); MEAN PLATELET VOLUME 8.8 fL (7.9-10.8); MONOCYTES # (AUTO) 0.2 10^3/uL (0.0-1.0); MONOCYTES % (AUTO) 5.2 %; NEUTROPHILS # (AUTO) 2.4 10^3/uL (1.5-6.6); NEUTROPHILS % (AUTO) 55.5 %; PLT - PLATELET COUNT 287 10^3/uL (130-450); RED BLOOD COUNT 4.58 10^6/uL (4.20-5.40); RED CELL DISTRIBUTION WIDTH 13.3 % (12.0-15.0); WHITE BLOOD COUNT 4.4 x10^3/uL (4.8-10.8)
[2022-04-03 12:14] LABS: ALBUMIN 4.3 g/dL (3.2-5.5); ALBUMIN/GLOBULIN RATIO 1.4 (1.0-2.2); ALKALINE PHOSPHATASE 61 IU/L (42-121); ALT ALANINE AMINOTRANSFERASE 19 IU/L (10-60); AST ASPARTATE AMINOTRANSFERASE 16 IU/L (10-42); BILIRUBIN,TOTAL 0.7 mg/dL (0.2-1.0); BUN - BLOOD UREA NITROGEN 20 mg/dL (6-20); CALCIUM 9.5 mg/dL (8.5-10.3); CARBON DIOXIDE - CO2 28 mmol/L (21-32); CHLORIDE 103 mmol/L (101-111); CHOL/HDL RATIO 3.3 (<4.4); CHOLESTEROL 249 mg/dL; CREATININE 0.6 mg/dL (0.4-1.0); GFR - MDRD 117 (>89); GLUCOSE 94 mg/dL (70-100); HDL CHOLESTEROL 76 mg/dL; SODIUM 140 mmol/L (135-145); TOTAL PROTEIN 7.3 g/dL (6.7-8.2); TRIGLYCERIDES 35 mg/dL
[2022-04-03 12:15] LABS: ESTIMATED AVERAGE GLUCOSE 100 mg/dL (70-100); HEMOGLOBIN A1c% 5.1 % (4.27-6.07)
[2022-04-03 12:19] LABS: THYROID STIMULATING HORMONE 1.08 uIU/mL (0.34-5.60)
== END 2022-04-03 09:14 | disposition home or self-care (01) ==
LOC: LAB.N 09:13
PROVIDERS: ATTEND Physician Assistant
DX: O24.419 Gestational diabetes mellitus in pregnancy, unspecified control (principal); O99.019 Anemia complicating pregnancy, unspecified trimester; D64.9 Anemia, unspecified; Z13.220 Encounter for screening for lipoid disorders; Z13.9 Encounter for screening, unspecified; Z13.29 Encounter for screening for other suspected endocrine disorder
CPT/HCPCS: 36415; 80053; 80061; 83036; 83721; 84443; 85025

== ENCOUNTER 2022-11-01 07:21 | Outpatient (CLI) | payer BC | END 2022-11-01 07:22 | disposition home or self-care (01) | LOC: LAB 07:21 | PROVIDERS: ATTEND Physician Assistant | DX: E78.5 Hyperlipidemia, unspecified (principal); E55.9 Vitamin D deficiency, unspecified ==

== ENCOUNTER 2022-11-02 03:53 | Outpatient (CLI) | payer BC ==
[2022-11-02 05:33] LABS: CHOL/HDL RATIO 2.4 (<4.4); CHOLESTEROL 205 mg/dL; HDL CHOLESTEROL 84 mg/dL; TRIGLYCERIDES 35 mg/dL
== END 2022-11-02 03:54 | disposition home or self-care (01) ==
LOC: LAB 03:53
PROVIDERS: ATTEND Physician Assistant
DX: E78.5 Hyperlipidemia, unspecified (principal); E55.9 Vitamin D deficiency, unspecified
CPT/HCPCS: 36415; 80061; 82306; 83721

== ENCOUNTER 2023-03-15 17:10 | Outpatient (CLI) | payer BC ==
[2023-03-15 20:49] LABS: BASOPHILS % (AUTO) 0.7 %; EOSINOPHILS # (AUTO) 0.1 10^3/uL (0.0-0.7); EOSINOPHILS % (AUTO) 1.7 %; HCT - HEMATOCRIT 40.5 % (37.0-47.0); HGB - HEMOGLOBIN 13.1 g/dL (12.0-16.0); LYMPHOCYTES # (AUTO) 2.4 10^3/uL (1.5-3.5); LYMPHOCYTES % (AUTO) 45.5 %; MEAN CORPUSCULAR HEMOGLOBIN 28.5 pg (27.0-31.0); MEAN CORPUSCULAR HGB CONC 32.3 g/dL (32.0-36.0); MEAN CORPUSCULAR VOLUME 88.2 fL (81.0-99.0); MEAN PLATELET VOLUME 9.5 fL (7.9-10.8); MONOCYTES # (AUTO) 0.3 10^3/uL (0.0-1.0); MONOCYTES % (AUTO) 5.8 %; NEUTROPHILS # (AUTO) 2.5 10^3/uL (1.5-6.6); NEUTROPHILS % (AUTO) 46.1 %; PLT - PLATELET COUNT 275 10^3/uL (130-450); RED BLOOD COUNT 4.59 10^6/uL (4.20-5.40); RED CELL DISTRIBUTION WIDTH 12.7 % (12.0-15.0); WHITE BLOOD COUNT 5.4 x10^3/uL (4.8-10.8)
[2023-03-15 20:52] LABS: ESTIMATED AVERAGE GLUCOSE 105 mg/dL (70-100); HEMOGLOBIN A1c% 5.3 % (4.27-6.07)
[2023-03-15 21:03] LABS: ALBUMIN 4.3 g/dL (3.2-5.5); ALBUMIN/GLOBULIN RATIO 1.5 (1.0-2.2); ALKALINE PHOSPHATASE 56 IU/L (42-121); ALT ALANINE AMINOTRANSFERASE 12 IU/L (10-60); AST ASPARTATE AMINOTRANSFERASE 14 IU/L (10-42); BILIRUBIN,TOTAL 0.9 mg/dL (0.2-1.0); BUN - BLOOD UREA NITROGEN 19 mg/dL (6-20); CALCIUM 9.2 mg/dL (8.5-10.3); CARBON DIOXIDE - CO2 24 mmol/L (21-32); CHLORIDE 104 mmol/L (101-111); CHOL/HDL RATIO 2.6 (<4.4); CHOLESTEROL 194 mg/dL; CREATININE 0.4 mg/dL (0.4-1.0); GFR - MDRD 185 (>89); GLUCOSE 87 mg/dL (70-100); HDL CHOLESTEROL 76 mg/dL; LDL CHOLESTEROL,CALCULATED 109 mg/dL; LDL/HDL RATIO 1.4 (<4.4); POTASSIUM 3.9 mmol/L (3.5-5.0); SODIUM 138 mmol/L (135-145); TOTAL PROTEIN 7.1 g/dL (6.7-8.2); TRIGLYCERIDES 47 mg/dL; VLDL CHOLESTEROL 9 mg/dL
[2023-03-15 21:14] LABS: THYROID STIMULATING HORMONE 1.99 uIU/mL (0.34-5.60)
== END 2023-03-15 17:11 | disposition home or self-care (01) ==
LOC: LAB.N 17:10
PROVIDERS: ATTEND Physician Assistant
DX: O24.419 Gestational diabetes mellitus in pregnancy, unspecified control (principal); O99.280 Endocrine, nutritional and metabolic diseases complicating pregnancy, unspecified trimester; E78.5 Hyperlipidemia, unspecified; Z13.29 Encounter for screening for other suspected endocrine disorder
CPT/HCPCS: 36415; 80053; 80061; 83036; 83721; 84443; 85025

== ENCOUNTER 2023-03-26 13:34 | Outpatient (CLI) | payer BC ==
--- NOTE | 2023-03-27 12:54 | Ultrasound Report ---
LIMITED ULTRASOUND OF RIGHT BREAST: 03/26/2023 CLINICAL: Palpable right breast lump. Comparison is made to exam dated: 04/11/2022 ultrasound - [facility]. Color flow ultrasound of the right breast 4 o'clock region was performed on the areas of interest. G ray scale images of the real-time examination were reviewed. There is a stable, hypoechoic focus in the right breast at 4 o'clock posterior depth when compared wi th the breast ultrasound from [facility] dated 04/11/2022. Color flow imaging demonstra latrell that there is no vascularity present. IMPRESSION: PROBABLY BENIGN The stable hypoechoic focus in the right breast may represent a lymph node, corresponds as palpated a nd is probably benign. 12 month follow up ultrasound is recommended to ensure a total of 24 months s tability. This exam was interpreted at Station ID: [id number]. Electronically Signed By: Alaina Lee M.D. lk/:03/26/2023 14:59:33 Ultrasound BI-RADS: 3 Probably benign BI-RADS CATEGORY: (3) - 3 Ultrasound [id number] 12 month follow-up LATERALITY: (R)
--- NOTE | 2023-03-27 12:54 | Ultrasound Report ---
LIMITED ULTRASOUND OF LEFT BREAST AND AXILLA: 03/26/2023 CLINICAL: Left breast lump/pain. No prior exams were available for comparison. Ultrasound of the left breast upper outer quadrant and axilla regions was performed [facility] the [facility] Huitron scale images of the real-time examination were reviewed. IMPRESSION: NEGATIVE There is no sonographic evidence of malignancy. There is no sonographic abnormality seen in the left axilla to correspond with the palpable abnormali ty in the left axilla, however, clinical followup is recommended. This exam was interpreted at Station ID: [id number]. Electronically Signed By: Alaina Lee M.D. lk/:03/26/2023 14:40:56 Ultrasound BI-RADS: 1 Negative BI-RADS CATEGORY: (1) - 1 Unspecified - other recall n/a LATERALITY: (B)
== END 2023-03-26 13:35 | disposition home or self-care (01) ==
LOC: DI 13:34
PROVIDERS: ATTEND Obstetrics & Gynecology
DX: N64.4 Mastodynia (principal)

== ENCOUNTER 2023-10-02 08:00 | Outpatient (CLI) | payer BC ==
[2023-10-02 16:50] LABS: BILIRUBIN,URINE NEGATIVE (NEGATIVE); GLUCOSE, URINE (UA) NEGATIVE (NEGATIVE); KETONES,URINE (UA) NEGATIVE (NEGATIVE); LEUKOCYTE ESTERASE, URINE NEGATIVE (NEGATIVE); NITRITE,URINE NEGATIVE (NEGATIVE); OCCULT BLOOD,URINE NEGATIVE (NEGATIVE); PH,URINE 7.5 PH (5.0-7.5); PROTEIN,URINE NEGATIVE (NEGATIVE); UROBILINOGEN,URINE 0.2 (NORMAL) E.U./dL (NORMAL)
[2023-10-02 17:04] LABS: CLARITY,URINE CLEAR (CLEAR)
[2023-10-02 17:13] LABS: BACTERIA,URINE None Seen /HPF (None Seen); RBC,URINE None Seen /HPF (0-5); SQUAMOUS EPITHELIAL CELL,UR NONE SEEN (<= Few); WBC,URINE 0-3 /HPF (0-5)
== END 2023-10-02 23:59 | disposition home or self-care (01) ==
LOC: LAB 08:00
PROVIDERS: ATTEND Nurse Practitioner
DX: Z34.80 Encounter for supervision of other normal pregnancy, unspecified trimester (principal)
CPT/HCPCS: 81001; 87086

== ENCOUNTER 2023-10-16 18:37 | Outpatient (CLI) | payer BC ==
--- NOTE | 2023-10-17 14:11 | Ultrasound Report ---
PROCEDURE: OB First Trimester INDICATIONS: POSITIVE TEST OUTSIDE/PRIOR DATING DATA: Last menstrual period (LMP): 08/15/2023. LMP-based estimated date of delivery (YAW): 05/21/2024. First dating scan (date and location): 10/16/2023. Estimated date of delivery (YAW) from first dating scan: 06/04/2024. TECHNIQUE: Real-time scanning was performed of the fetus and maternal pelvic organs, with image documentation. COMPARISON: None. FINDINGS: Intrauterine gestational sac present. Embryo: [place]-rump length measures 0.85 cm, consistent with 6 weeks and 6 days Heart rate: 153 bpm. Other: No perigestational fluid collection. A yolk sac is noted. Measurement variability in dating: +/- 4 weeks by LMP, +/- 7 days by mean sac diameter (use before 6 weeks gestation if crown-rump length not able to be measured), +/- 5 days by crown-rump length (6-12 weeks gestation). Maternal organs: Ovaries appear within normal limits. Two right corpus luteal cysts measuring 2.0 an d 1.8 cm. IMPRESSION: Single live intrauterine consistent with 6 weeks and 6 days. Reviewed by: Luis Gonzales MD on 10/17/2023 2:10 PM PST Approved by: Luis Gonzales MD on 10/17/2023 2:10 PM PST Station ID: [id number]
== END 2023-10-16 18:38 | disposition home or self-care (01) ==
LOC: DI 18:37
PROVIDERS: ATTEND Nurse Practitioner
DX: Z34.81 Encounter for supervision of other normal pregnancy, first trimester (principal)

== ENCOUNTER 2023-11-08 08:00 | Outpatient (CLI) | payer BC ==
[2023-11-09 17:02] LABS: CHLAMYDIA TRACHOMATIS DNA NEGATIVE (NEGATIVE); NEISSERIA GONORRHOEAE DNA NEGATIVE (NEGATIVE); TRICHOMONAS VAGINALIS DNA NEGATIVE (NEGATIVE)
== END 2023-11-08 23:59 | disposition home or self-care (01) ==
LOC: LAB.WC 08:00
PROVIDERS: ATTEND Obstetrics & Gynecology
DX: Z11.3 Encounter for screening for infections with a predominantly sexual mode of transmission (principal)
CPT/HCPCS: 36415; 81001; 85025; 86592; 86762; 86787; 86803; 86850; 86900; 86901; 87086; 87340; 87389; 87491; 87591; 87661

== ENCOUNTER 2023-11-27 23:02 | Outpatient (CLI) | payer BC | END 2023-11-27 23:03 | disposition home or self-care (01) | LOC: LAB 23:02 | PROVIDERS: ATTEND Obstetrics & Gynecology | DX: O09.91 Supervision of high risk pregnancy, unspecified, first trimester (principal); Z86.32 Personal history of gestational diabetes | CPT/HCPCS: 36415; 82950 ==

== ENCOUNTER 2024-01-10 19:21 | Outpatient (CLI) | payer BC ==
--- NOTE | 2024-01-11 10:04 | Ultrasound Report ---
PROCEDURE: OB Anatomy Scan INDICATIONS: SUPERVISION OF OUTSIDE/PRIOR DATING DATA: Last menstrual period (LMP): 08/15/2023. LMP-based estimated date of delivery (YAW): 05/21/2024. First dating scan (date and location): 10/16/2023. Estimated date of delivery (YAW) from first dating scan: 06/04/2024. The below data below was generated using the working YAW of 06/04/2024 TECHNIQUE: Real-time scanning was performed of the fetus, with image documentation and biometric measurements. Endovaginal scanning: Not performed. COMPARISON: 10/16/2023 FINDINGS: General: A single living intrauterine gestation is present. Presentation: Variable Placenta: Placental position is posterior fundal, without previa. Amniotic fluid index: 13.3 cm, within normal limits for gestational age. heart rate: 157 beats per minute. Maternal cervical canal: 4.1 cm long; normal length is 2.5 cm or more. biometrics: Biparietal diameter: 4.43 cm, 19 weeks, 3 days, 61.8%. Head circumference: 16.06 cm, 18 weeks, 6 days, 29.6% Abdominal circumference: 15.12 cm, 20 weeks, 2 days, 82.6% Femur length: 2.7 cm, 18 weeks, 6 days, 31.0%. Estimated gestational age from initial scan: 19 weeks, 1 day Composite gestational age from present scan: 19 weeks, 3 days Estimated weight and percentile: 299.4 g, 70.3% Measurement variability in biometric dating: +/- 10 days from 12-20 weeks gestation, +/- 2 weeks from 20-30 weeks gestation, +/- 3 weeks at 30 weeks gestation or later. Anatomic survey: Neuro: Ventricles are normal at less than 10 mm. Cisterna magna is normal at 3-11 mm. Cerebellum i s normal in size and morphology. Nuchal skin fold: Normal at less than 6 mm between 14 and 20 weeks gestational age. Face: Nose and lips, facial profile are normal. Spine: No evidence for spina bifida. Heart: 4-chambered heart is present, with normal ventricular outflow tracts. Diaphragm: Diaphragm is intact. Stomach: Left-sided stomach is present. Kidneys: No hydronephrosis. Normal is less than 5 mm in 2nd trimester, less than 7 mm in 3rd trimester. Cord: 3 vessel cord has orthotopic insertion. Bladder: Normal in size. Extremities: All 4 extremities are visualized. IMPRESSION: 1. Single live intrauterine gestation with fetus in variable presentation. heart rate is 157 bp m. Normal amount of amniotic fluid. PAULIE gross 13.3 cm. Normal growth. Estimated weight is at 70.3%. 2. Normal anatomic survey. Reviewed by: Dereck Sher MD on 01/11/2024 10:03 AM [facility] Approved by: Dereck Sher MD on 01/11/2024 10:03 AM PDT Station ID: [id number]
[2024-01-14 14:08] LABS: DIA MOM 0.91 (.); DIA VALUE 201.25 pg/mL (.); DSR (BY AGE) 1 IN 420 (.); DSR (SECOND TRIMESTER) 1 IN 7220 (.); GEST. AGE ON COLLECTION DATE 19.1 WEEKS (.); GESTAT. AGE METHOD Ultrasound (.); HCG MOM 0.58 (.); HCG VALUE 21161 mIU/mL (.); INSULIN DEP DIABETES No (.); MATERNAL AGE AT EDD 33.3 yr (.); MULTIPLE GESTATION No (.); OPEN SPINA BIFIDA RISK 1 IN 10000 (.); RACE Other (.); RESULTS Report (.); TEST RESULTS *Screen Negative* (.); TRISOMY 18 RISK Not increased (.); UE3 MOM 1.33 (.); UE3 VALUE 2.94 ng/mL (.); WEIGHT 97 lbs (.)
== END 2024-01-10 19:22 | disposition home or self-care (01) ==
LOC: DI 19:21
PROVIDERS: ATTEND Obstetrics & Gynecology
DX: O09.92 Supervision of high risk pregnancy, unspecified, second trimester (principal); Z36.89 Encounter for other specified antenatal screening; Z3A.19 19 weeks gestation of pregnancy
CPT/HCPCS: 36415; 81511

== ENCOUNTER 2024-02-28 08:00 | Outpatient (CLI) | payer BC ==
[2024-02-28 05:00] LABS: BASOPHILS % (AUTO) 0.5 %; EOSINOPHILS # (AUTO) 0.1 10^3/uL (0.0-0.7); EOSINOPHILS % (AUTO) 0.9 %; HCT - HEMATOCRIT 35.9 % (37.0-47.0); HGB - HEMOGLOBIN 11.2 g/dL (12.0-16.0); LYMPHOCYTES # (AUTO) 1.8 10^3/uL (1.5-3.5); LYMPHOCYTES % (AUTO) 23.1 %; MEAN CORPUSCULAR HGB CONC 31.2 g/dL (32.0-36.0); MEAN CORPUSCULAR VOLUME 96.2 fL (81.0-99.0); MEAN PLATELET VOLUME 9.5 fL (7.9-10.8); MONOCYTES # (AUTO) 0.5 10^3/uL (0.0-1.0); MONOCYTES % (AUTO) 6.9 %; NEUTROPHILS # (AUTO) 5.2 10^3/uL (1.5-6.6); NEUTROPHILS % (AUTO) 67.2 %; PLT - PLATELET COUNT 208 10^3/uL (130-450); RED BLOOD COUNT 3.73 10^6/uL (4.20-5.40); RED CELL DISTRIBUTION WIDTH 13.8 % (12.0-15.0); WHITE BLOOD COUNT 7.7 x10^3/uL (4.8-10.8)
[2024-02-28 05:24] LABS: CREATININE,URINE 119.7 mg/dL; PROTEIN/CREATININE RATIO,URINE 0.1 (<=0.2)
[2024-02-28 09:29] LABS: ESTIMATED AVERAGE GLUCOSE 85 mg/dL (70-100); HEMOGLOBIN A1c% 4.6 % (4.27-6.07)
[2024-02-29 07:10] LABS: RPR Non Reactive (Non Reactive)
== END 2024-02-28 23:59 | disposition home or self-care (01) ==
LOC: LAB 08:00
PROVIDERS: ATTEND Obstetrics & Gynecology
DX: O24.419 Gestational diabetes mellitus in pregnancy, unspecified control (principal)
CPT/HCPCS: 36415; 82570; 83036; 84156; 85025; 86592

== ENCOUNTER 2024-04-08 19:28 | Outpatient (CLI) | payer BC ==
--- NOTE | 2024-04-09 19:52 | Ultrasound Report ---
PROCEDURE: OB Follow up INDICATIONS: GESTATIONAL DIABETES MELLITUS OUTSIDE/PRIOR DATING DATA: Last menstrual period (LMP): 08/15/2023. LMP-based estimated date of delivery (YAW): 05/21/2024. First dating scan (date and location): 10/16/2023. Estimated date of delivery (YAW) from first dating scan: 06/04/2024. The below data below was generated using the working YAW of 06/04/2024 TECHNIQUE: Ultrasound of the gravid uterus was performed and recorded. COMPARISON: 01/10/2024 FINDINGS: General: A single live intrauterine gestation is present. Presentation: Vertex Placenta: Placental position is posterior without previa. Amniotic fluid index: 12.4 cm, 20.4 percentile for gestational age. heart rate: 158 beats per minute. Maternal cervical canal: Nonvisualized biometrics: Biparietal diameter: 17.5 cm, 30 week 3 day, 7.5 percentile Head circumference: 29.1 cm, 32 week 1 day, 19.26 percentile Abdominal circumference: 26.9 cm, 31 week 1 day, 25.7 percentile Femur length: 5.9 cm, 30 week 6 day, 14.0 percentile Estimated gestational age by working dates: 31 week 6 day Composite gestational age by current ultrasound: 31 week 1 day Estimated weight and percentile: 1692 g, 17.2% Measurement variability in biometric dating: +/- 10 days from 12-20 weeks gestation, +/- 2 weeks from 20-30 weeks gestation, +/- 3 weeks at 30 weeks gestation or more. Other: Not applicable. IMPRESSION: Single live intrauterine consistent with 31 week 1 day gestation by current ultrasound Reviewed by: Brandon Joseph MD on 04/09/2024 6:51 PM AJ Approved by: Brandon Joseph MD on 04/09/2024 6:51 PM AJ Station ID: [id number]
== END 2024-04-08 19:29 | disposition home or self-care (01) ==
LOC: DI 19:28
PROVIDERS: ATTEND Obstetrics & Gynecology
DX: O24.410 Gestational diabetes mellitus in pregnancy, diet controlled (principal); Z3A.31 31 weeks gestation of pregnancy

== ENCOUNTER 2024-05-07 08:00 | Outpatient (CLI) | payer BC | END 2024-05-07 23:59 | disposition home or self-care (01) | LOC: LAB.WC 08:00 | PROVIDERS: ATTEND Obstetrics & Gynecology | DX: Z36.85 Encounter for antenatal screening for Streptococcus B (principal) | CPT/HCPCS: 87797 ==

== ENCOUNTER 2024-05-07 18:50 | Outpatient (CLI) | payer BC ==
--- NOTE | 2024-05-08 11:26 | Ultrasound Report ---
PROCEDURE: OB Follow up INDICATIONS: UTERINE SIZE DATE DISCREPENCY OUTSIDE/PRIOR DATING DATA: Last menstrual period (LMP): 08/15/2023. LMP-based estimated date of delivery (YAW): 11/14. First dating scan (date and location): 10/16/2023. Estimated date of delivery (YAW) from first dating scan: 06/04/2024. The below data below was generated using the working YAW of 06/04/2024 TECHNIQUE: Real-time scanning was performed of the fetus, with image documentation and biometric measurements. Endovaginal scanning: Not performed. COMPARISON: 10/16/2023, 01/10/2024 FINDINGS: General: A single living intrauterine gestation is present. Presentation: Vertex Placenta: Placental position is posterior, without previa. Amniotic fluid index: 12.4 cm, 28.4% for gestational age. heart rate: 158 beats per minute. Maternal cervical canal: Not evaluated. biometrics: Biparietal diameter: 7.58 cm, 30 weeks, 3 days, 7.5% Head circumference: 29.1 cm, 32 weeks, 1 day, 19.2% Abdominal circumference: 26.9 cm, 31 weeks, 1 day, 25.7% Femur length: 5.9 cm, 30 weeks, 6 days, 14.0% Estimated gestational age from initial scan: 31 weeks, 6 days Composite gestational age from present scan: 31 weeks, 1 day Estimated weight and percentile: 1692 g, 17.2% Measurement variability in biometric dating: +/- 10 days from 12-20 weeks gestation, +/- 2 weeks from 20-30 weeks gestation, +/- 3 weeks at 30 weeks gestation or more. Other: Not applicable. IMPRESSION: 1. Single live intrauterine gestation with fetus in vertex presentation. heart rate is 158 bpm. Normal PAULIE at 12.4 cm. Normal growth with estimated weight measures at 17.2%. Reviewed by: Dereck Sher MD on 05/08/2024 11:25 AM PDT Approved by: Dereck Sher MD on 05/08/2024 11:25 AM PDT Station ID: [id number]
== END 2024-05-07 18:51 | disposition home or self-care (01) ==
LOC: DI 18:50
PROVIDERS: ATTEND Obstetrics & Gynecology
DX: O26.843 Uterine size-date discrepancy, third trimester (principal); Z36.85 Encounter for antenatal screening for Streptococcus B; Z3A.31 31 weeks gestation of pregnancy
CPT/HCPCS: 87797

== ENCOUNTER 2024-05-27 02:46 | Inpatient (IN) | payer BC ==
[2024-05-27 03:17] LABS: RUPTURE OF MEMBRANES PLUS POSITIVE (NEGATIVE)
[2024-05-27] MEDS ORDERED: OXYTOCIN 10 UNIT/ML VIAL IM PRN (03:59)
[2024-05-27] MEDS ORDERED: CARBOPROST TROMETHAMINE 250 MCG/ML VIAL IM PRN (03:59)
[2024-05-27] MEDS ORDERED: miSOPROStoL 200 MCG TABLET BC PRN (03:59)
[2024-05-27] MEDS ORDERED: LACTATED RINGERS 1,000 ML IV PRN (03:59)
[2024-05-27] MEDS ORDERED: hydrALAZINE INJ 20 MG/ML VIAL IVP PRN ×2 (03:59)
[2024-05-27] MEDS ORDERED: SODIUM CHLORIDE FLUSH 0.9% 10 ML SYRINGE IVP PRN (03:59)
[2024-05-27] MEDS ORDERED: miSOPROStoL 200 MCG TABLET PR PRN (03:59)
[2024-05-27] MEDS ORDERED: NIFEdipine 10 MG CAPSULE PO PRN (03:59)
[2024-05-27] MEDS ORDERED: METHYLERGONOVINE 0.2 MG/ML VIAL IM PRN (03:59)
[2024-05-27] MEDS ORDERED: fentaNYL 100 MCG/2 ML VIAL IVP PRN (03:59)
[2024-05-27] MEDS ORDERED: TERBUTALINE 1 MG/ML VIAL SUBQ PRN (03:59)
[2024-05-27] MEDS ORDERED: TRANEXAMIC ACID IN NACL 1,000 MG/100 ML BAG IV PRN (03:59)
[2024-05-27] MEDS ORDERED: lidocaine 1% 20 ML MDV ID PRN (03:59)
[2024-05-27] MEDS ORDERED: LABETALOL 20 MG/4 ML SYRINGE IVP PRN ×3 (03:59)
[2024-05-27] MEDS ORDERED: SODIUM CHLORIDE FLUSH 0.9% 10 ML SYRINGE IVP SCH (04:00)
--- NOTE | 2024-05-27 04:23 | HISTORY & PHYSICAL EXAMINATION ---
Admit History - Visit Reason Visit Reason: Contractions - : 2 Parity: 1 Smoking Status: Never smoker - Mother's Labs Mother's Blood Type: positive: A Mother's RH: positive: Positive GBS: positive: Group B Step Negative Rubella Status: positive: Immune - Other Maternal History Other Maternal History: HPI: Patient is a 34-year-old -0-0-1 at 38 weeks 6 days gestation presents today for contractions and leaking fluid. She started leaking yesterday afternoon, but picked up leaking and contractions the last several hours. She has good movement. No ACOSTA/BV or RUQP. No vaginal bleeding. All other symptoms reviewed and were negative except per HPI. Course G2 P-1 LMP: 08/15/2023 YAW by LMP: 05/21/2024 US: 10/16/23, 6 weeks 6 days, YAW by ultrasound: 06/04/2024 Final YAW: 06/04/2024 by 6-week ultrasound sex: IT's a GIRL!!! Problems: Gestational diabetes A1. Gestational diabetes last managed with diet and exercise. Had an elevated 2-hour GTT with elevated 1 hour and 2- hour values. Subsequently had 2 normal A1c values. Likely an aspect of pregestational diabetes -CGM This , very good results at 25 weeks. told 02/20/24 she can take a break for a few weeks and keep eating well, but wants to keep checking since it keeps her active and on top of things. -EFW ordered for week of 04/06 - 17%tile. - Repeat growth US 05/07 Pre- Weight: 98 BMI: 18.70 Blood type: A+ Antibody: negative CBC:12.3/36.9/251 RUB:Immune VZV:Nonreactive HBsAg: Nonreactive HepC: Nonreactive RPR/AB-EIA:Nonreactive HIV:Nonreactive PAP: 01/18/2021 NILM HPV- GC/CT:self collected 11/08 negative HSV: denies Genetic testin01/10/2024 Quad - Negative Covid: vaccinated Flu: vaccinated FAS: 01/10/2024 Placenta: Posterior Cord: 3VC PAULIE: 13.3cm EFW: 299.4g 70.3%tile 50gm OGCT: 11/28/23 early 1hr- 155. CGM, labs ordered for 28 weeks. TDAP: 03/19 Breast Pump: 03/19 3rd trimester H/H 11.2/35.9 PLT 208 GBS: Negative Delivery plan: 39 week IOL Contraception:Unsure but does not want OCPs PMH Gestational diabetes PSH Denies previous surgery OB History -0-0-1 1. 10/28/2021, 37 weeks 5 days, , male, 6 pounds 5 ounces, hemorrhage, acute blood loss anemia SH Denies tobacco,, drugs Family History Mother: Breast cancer, in her 40s Father: Hypertension, hyperlipidemia Maternal grandfather: Stroke Allergies No known drug allergies Medications on vitamins Physical exam: General: Alert, oriented, no acute distress Head: Normal cephalic atraumatic Eyes: PERRLA, extraocular motions intact. Respiratory: Normal rate of respiration. No accessory muscle use, normal respiratory effort. Cardiovascular: Regular rate and rhythm Abdomen: Gravid, nontender, nondistended Extremities: Normal range of motion Neuro: Oriented x3. Normal movements Psych: Appropriate mood and affect. Normal judgment and insight SVE: 5/90/-1 FHT: 150 beats provide single moderate variability, accelerations present, no decelerations. Reactive NST [place]: 4 to 5 minutes ROM plus: Positive Plan 34-year-old -0-0-1 at 38 weeks 6 days gestation presenting for term labor. 1. Term labor/SROM -Admit to L&D, have labs, epidural at patient's request -Will start oxytocin if not making cervical change, but significant change since clinic last week. 2. Gestational diabetes -We will start with every 4 hour glucose checks - HPI Vital Signs Temperature 98.8 F 05/27/24 02:58 Heart Rate 81 05/27/24 02:58 Respiratory Rate 14 05/27/24 02:58 Blood Pressure 123/80 05/27/24 02:58 Temperature 98.8 F 05/27/24 02:58 Heart Rate 81 05/27/24 02:58 Respiratory Rate 14 05/27/24 02:58 Blood Pressure 123/80 05/27/24 02:58 O2 Saturation If not protocol: Oxygen Flow, liters/minute - NST Procedure NST Procedure Start Time 16:44 Stop Time 17:11 Meds/Allgy - Home Medications Home Medications: Ambulatory Orders Medication Instructions Recorded Confirmed Ascorbic Acid [Vitamin C] 250 mg PO DAILY 09/26/21 09/26/21 Ferrous Gluconate 324 mg PO BID 09/26/21 09/26/21 No122/Iron/Folic Acid 1 each PO DAILY 09/26/21 09/26/21 [ Multi Tablet] Acetaminophen [Acetaminophen Extra 1,000 mg PO Q8H PRN #60 tablet 10/29/21 Strength] Ascorbic Acid [Vitamin C] 250 mg PO BID 2 Days #60 tablet 10/29/21 Docusate Sodium 100Mg Capsule 100 - 200 mg PO BID PRN #60 cap 10/29/21 [Colace 100Mg Capsule] Ferrous Gluconate 324 mg PO BID #60 tablet 10/29/21 Ibuprofen [Motrin] 600 mg PO Q6H PRN #60 tab 10/29/21 - Allergies Allergies/Adverse Reactions: Allergies Allergy/AdvReac Type Severity Reaction Status Date / Time No Known Drug Allergies Allergy Verified 09/26/21 14:49 Physical - Abdominal Exam Vital Signs: Temp Pulse Resp BP Pulse Ox O2 Flow Rate 98.8 F 81 14 123/80 05/27/24 02:58 05/27/24 02:58 05/27/24 02:58 05/27/24 02:58 Plan for Labor - Plan For Labor I expect patient to be DC'd or transferred within 96 hours.: Yes
[2024-05-27 04:46] LABS: BASOPHILS % (AUTO) 0.4 %; EOSINOPHILS % (AUTO) 0.5 %; HCT - HEMATOCRIT 38.2 % (37.0-47.0); HGB - HEMOGLOBIN 13.1 g/dL (12.0-16.0); LYMPHOCYTES # (AUTO) 1.7 10^3/uL (1.5-3.5); LYMPHOCYTES % (AUTO) 22.6 %; MEAN CORPUSCULAR HEMOGLOBIN 31.6 pg (27.0-31.0); MEAN CORPUSCULAR HGB CONC 34.3 g/dL (32.0-36.0); MEAN PLATELET VOLUME 10.1 fL (7.9-10.8); MONOCYTES # (AUTO) 0.5 10^3/uL (0.0-1.0); MONOCYTES % (AUTO) 6.6 %; NEUTROPHILS # (AUTO) 5.3 10^3/uL (1.5-6.6); NEUTROPHILS % (AUTO) 69.6 %; PLT - PLATELET COUNT 180 10^3/uL (130-450); RED BLOOD COUNT 4.15 10^6/uL (4.20-5.40); RED CELL DISTRIBUTION WIDTH 13.6 % (12.0-15.0); WHITE BLOOD COUNT 7.6 x10^3/uL (4.8-10.8)
[2024-05-27] MEDS: LACTATED RINGERS 1,000 ML IV SCH (04:48)
[2024-05-27] MEDS ORDERED: ROPIVACAINE 0.2% 200 MG/100 ML BAG EP ONE (05:04)
[2024-05-27] MEDS ORDERED: LIDOCAINE 2%-EPI 1:100000 20 ML MDV ONE (05:04)
[2024-05-27] MEDS ORDERED: NALOXONE 0.4 MG/ML VIAL IVP PRN (06:11)
[2024-05-27] MEDS ORDERED: METOCLOPRAMIDE 10 MG/2 ML VIAL IVP PRN (06:11)
[2024-05-27] MEDS ORDERED: diphenhydrAMINE INJ 50 MG/ML VIAL IVP PRN (06:11)
[2024-05-27] MEDS ORDERED: ROPIVACAINE 0.2% 200 MG/100 ML BAG EP PRN (06:11)
[2024-05-27] MEDS ORDERED: ONDANSETRON 4 MG/2 ML VIAL IVP PRN ×2 (06:11→07:48)
[2024-05-27] MEDS ORDERED: ePHEDrine 50 MG/ML VIAL IVP PRN (06:11)
[2024-05-27] MEDS ORDERED: NALBUPHINE 10 MG/ML AMP IVP PRN (06:11)
--- NOTE | 2024-05-27 06:11 | ANESTHESIA ---
Pre-Anesthesia VS, & Labs - Diagnosis labor pain - Procedure labor epidural Vital Signs: Temp Pulse Resp BP Pulse Ox O2 Flow Rate 37.1 C 81 14 123/80 05/27/24 04:51 05/27/24 02:58 05/27/24 02:58 05/27/24 02:58 Height: 5 ft 1 in Weight (kg): 50.802 kg Body Mass Index: 21.1 BMI Classification: Normal - NPO Other - Is Patient ?: Yes - Lab Results Current Lab Results: Laboratory Tests 05/27/24 04:25: WBC 7.6, RBC 4.15 L, Hgb 13.1, Hct 38.2, MCV 92.0, MCH 31.6 H, MCHC 34.3, RDW 13.6, Plt Count 180, MPV 10.1, Neut # (Auto) 5.3, Lymph # (Auto) 1.7, [place] # (Auto) 0.5, Eos # (Auto) 0.0, Baso # (Auto) 0.0, Absolute Nucleated RBC 0.00, Nucleated RBC % 0.0 Fish Bones: 05/27/24 04:25 Home Medications and Allergies Active Medications Carboprost Tromethamine (Carboprost Tromethamine 250 Mcg/Ml Vial) 250 mcg IM .ONCE PRN PRN Reason: Hemorrhage Fentanyl (Fentanyl 100 Mcg/2 Ml Vial) 50 mcg IVP Q1H PRN PRN Reason: Severe Pain (score 7-10) Hydralazine HCl (Hydralazine Inj 20 Mg/Ml Vial) 5 - 10 mg IVP Q20M PRN; Protocol PRN Reason: SBP> or= 160 OR DBP> or= 110 Hydralazine HCl (Hydralazine Inj 20 Mg/Ml Vial) 10 mg IVP .ONCE PRN; Protocol PRN Reason: SBP> or= 160 OR DBP> or= 110 Lactated Ringer's (Lr) 500 mls @ 999 mls/hr IV PRN PRN PRN Reason: distress Oxytocin/Sodium Chloride (Pitocin/Sodium Chloride) 500 mls @ 999 mls/hr IV PRN PRN; Protocol PRN Reason: POST- HEMORR PREVENTION Tranexamic Acid (Tranexamic 1,000 Mg/100ml-Nacl) 1,000 mg in 100 mls @ 600 mls/hr IV Q30M PRN PRN Reason: EBL >1200mL and within 3hr Labetalol HCl (Labetalol 20 Mg/4 Ml Syringe) 20 - 80 mg IVP Q10M PRN; Protocol PRN Reason: SBP> or= 160 OR DBP> or= 110 Labetalol HCl (Labetalol 20 Mg/4 Ml Syringe) 20 mg IVP .ONCE PRN; Protocol PRN Reason: SBP> or= 160 OR DBP> or= 110 Labetalol HCl (Labetalol 20 Mg/4 Ml Syringe) 20 - 40 mg IVP Q10M PRN; Protocol PRN Reason: SBP> or= 160 OR DBP> or= 110 Lidocaine HCl (Lidocaine 1% 20 Ml Mdv) 20 ml ID .ONCE PRN PRN Reason: PERINEAL REPAIR Stop: 05/30/24 04:04 Methylergonovine Maleate (Methylergonovine 0.2 Mg/Ml Vial) 0.2 mg IM .ONCE PRN PRN Reason: Hemorrhage Misoprostol (Misoprostol 200 Mcg Tablet) 600 mcg BC .ONCE PRN PRN Reason: Hemorrhage Misoprostol (Misoprostol 200 Mcg Tablet) 800 mcg NC .ONCE PRN PRN Reason: Hemorrhage Nifedipine (Nifedipine 10 Mg Capsule) 10 - 20 mg PO Q20M PRN; Protocol PRN Reason: SBP> or= 160 OR DBP> or= 110 Oxytocin (Oxytocin 10 Unit/Ml Vial) 10 unit IM .ONCE PRN PRN Reason: Step One if no IV access. Sodium Chloride (Sodium Chloride Flush 0.9% 10 Ml Syringe) 10 ml IVP PRN PRN PRN Reason: NEEDED PER PROVIDER ORDERS Sodium Chloride (Sodium Chloride Flush 0.9% 10 Ml Syringe) 10 ml IVP Q8H RACHEL Terbutaline Sulfate (Terbutaline 1 Mg/Ml Vial) 0.25 mg SUBQ .ONCE PRN PRN Reason: Tachystole Ascorbic Acid [Vitamin C] 250 mg PO DAILY 09/26/21 Ferrous Gluconate 324 mg PO BID 09/26/21 No122/Iron/Folic Acid [ Multi Tablet] 1 each PO DAILY 09/26/21 Allergies/Adverse Reactions: Allergies Allergy/AdvReac Type Severity Reaction Status Date / Time No Known Drug Allergies Allergy Verified 09/26/21 14:49 Anes History & Medical History - Anesthetic History Anesthesia Complications: reports: No previous complications Family history of Anesthesia Complications: Denies Family history of Malignant Hyperthermia: Denies - Medical History Cardiovascular: reports: None Pulmonary: reports: None Smoking Status: Never smoker - Obstetrical History : 2 Parity: 1 Exam General: Alert, Oriented x3, Cooperative Dental: WNL, Other (prominent incisors) Neck Mobility: Normal Mallampati classification: I Thyromental Distance: 4-6 cm Respiratory: Lungs clear Cardiovascular: Regular rate Plan Anesthesia Type: Epidural Consent for Procedure(s) Verified and Reviewed: Yes Code Status: Attempt Resuscitation ASA classification: 2-Mild systemic disease Is this case an emergency?: No
[2024-05-27] MEDS: OXYTOCIN/SODIUM CHLORIDE 500 ML IV PRN (07:26)
[2024-05-27] MEDS ORDERED: CALCIUM CARBONATE CHEW 500 MG TABLET PO PRN (07:48)
[2024-05-27] MEDS ORDERED: SIMETHICONE CHEW 80 MG TABLET PO PRN (07:48)
[2024-05-27] MEDS ORDERED: WITCH HAZEL/GLYCERIN 1 PAD TOP PRN (07:48)
--- NOTE | 2024-05-27 07:48 | DELIVERY NOTE ---
Delivery Note - Labor Labor: positive: Spontaneous - Presentation Presentation: positive: Vertex - Nuchal Cord Nuchal Cord: positive: None - Anesthetic Anesthetic Type: - Amniotic Fluid Description Amniotic Fluid Description: positive: Clear - Laceration Laceration: positive: 1st degree - Suture Suture Type: positive: Vicryl Suture Size: positive: 3-0 - Delivery Outcome Delivery Outcome: positive: Livebirth - [place]: positive: Placed in direct skin contact with mother, [place] used [place] sex: positive: Female - Cord Cord: positive: 3 vessels - Placenta Placenta: positive: Intact - Estimated Blood Loss Estimated Blood Loss (in cc): 250 - Post Delivery Events Post Delivery Events: positive: No post delivery events - Delivery Comments (Free Text/Narrative) Delivery Comments (Free Text/Narrative): Preoperative Diagnoses 38 weeks gestation History of hemorrhage A1 gestational diabetes, managed with diet and exercise Postoperative Diagnoses Same Delivery of live carranza Status post spontaneous vaginal delivery Summary Patient had a complicated with A1 gestational diabetes, but very good glucose control with diet and exercise. She presented at 38 weeks 6 days gestation for labor and leaking fluid which was confirmed on arrival. She progressed spontaneously and the delivery team was called. Delivery Summary: Patient was placed in the dorsal lithotomy position. Upon maternal pushing the head was delivered atraumatically followed by the anterior shoulder, posterior shoulder, then the remainder of the 's body. A female was delivered with APGARS of 8 at 1 minute and 9 at 5 minutes. The was placed on its mother's chest . After the cord finished pulsating, the umbilical cord was clamped times two and cut. The placenta delivered intact with three vessel cord. Placenta was not sent to pathology. Thirty units of Pitocin were added to the IV fluid and allowed to run freely. Uterine massage was performed until uterus was deemed firm. Upon inspection of the perineum, vagina and cervix were intact. Upon re- inspection the patient was hemostatic. Uterus again massaged and found to be firm. Needle and sponge counts were correct. Patient was stable and allowed to recover in L&D room. Infant was stable and remained in room with mother. weight is pending at this time.
[2024-05-27] MEDS: LACTATED RINGERS 500 ML IV ONE (09:00)
--- NOTE | 2024-05-27 11:24 | PHARMACY PROGRESS NOTE ---
- Best Possible Medication History Admit Date and Time: 05/27/24 0404 Processed by: Pharmacy (Medication Reconciliation completed by Hosiery Looper, Katelyn) Medications reviewed in ED?: No Medication History completed: Yes Patient Interview: Completed Secondary Source(s): Insurance records As the person ultimately responsible for medication therapy, providers are able to order a medication from an existing home medication list in [facility] via the "Reconcile Routine" prior to Confirmation of that medication by integrated logistics support manager. Such practice is discouraged except when the physician, in their clinical judgment, deems that a medical need exists for a medication without regard to previous use.
[2024-05-27] MEDS: IBUPROFEN 600 MG TABLET PO SCH (11:43)
[2024-05-27] MEDS: ACETAMINOPHEN 500 MG TABLET PO SCH (11:43)
[2024-05-27] MEDS: DOCUSATE SODIUM 100 MG CAPSULE PO PRN (22:12)
[2024-05-27 23:32] VITALS: O2SAT 97
[2024-05-28 09:19] VITALS: BP 100/65
--- NOTE | 2024-05-28 09:46 | DISCHARGE SUMMARY ---
Discharge Summary Admit Date: 05/27/24 Discharge Date: 05/28/26 Discharging Provider: Wilber Blum MD Condition at Discharge: Good Discharge Disposition: 01 Home, Self Care - DIAGNOSES Admission Diagnoses: Term Labor Discharge Diagnoses with Status of Each Condition: Status post spontaneous vaginal delivery Delivery of live carranza - HPI History of Present Illness: Subjective Patient reports she is doing well. Lochia appropriate. Denies heavy bleeding. Ambulating. Pelvic and abdominal pain well-controlled. Tolerating oral intake. Diet: Regular. Voiding without difficulty. Passing flatus. Denies BM. Patient is bonding with baby in room Breast feeding going well. Denies feeling lightheaded, dizzy or excessively fatigued. Objective General: Alert, oriented, no apparent distress. Cardiovascular: Regular rate. Regular rhythm. Lungs: No increased work of breathing. Abdomen: Uterus firm. Below umbilicus. No guarding or rebound. Extremities: No pain on palpation. No cords palpated. Distal pulses intact. - HOSPITAL COURSE Hospital Course: Patient was admitted at 38 weeks gestation for term labor and spontaneous rupture of membranes. She was 5 cm on admission and progressed on her own until complete and ready to push. Vaginal delivery was uncomplicated and gave to a healthy female with Apgars of 8/9. They are both discharged on day 1. - ALLERGIES Allergies/Adverse Reactions: Allergies Allergy/AdvReac Type Severity Reaction Status Date / Time No Known Drug Allergies Allergy Verified 05/27/24 09:18 - MEDICATIONS Home Medications: Ambulatory Orders Medication Instructions Recorded Confirmed No122/Iron/Folic Acid 1 each PO DAILY 09/26/21 05/27/24 [ Multi Tablet] Cholecalciferol (Vitamin D3) 25 mcg PO DAILY 05/27/24 05/27/24 [Vitamin D3] - LABS Result Diagrams: 05/27/24 04:25 - [facility] - TIME SPENT Time Spent in Discharge (Minutes): 20
--- NOTE | 2024-05-28 09:46 | Discharge Plan ---
Discharge Plan Problem Reviewed?: Yes Disposition: Home, Self Care Condition: Good Diet: Regular Shower Restrictions: No Instruction Topics: Vaginal After, Depression No Smoking: If you smoke, Please STOP! Call for help. Follow-up with: Wilber Blum MD [Provider Admit Priv/Credential] -
--- NOTE | 2024-05-28 16:17 | Labor Flowsheet ---
Labor Flowsheet Datetime Report Generated by CPN: 05/28/2024 16:16 Datetime: 05/28/2024 09:02 VITAL SIGNS NBP Sys/Dayana/Mean (mmHg): 100 : 65 : 72 Pulse: 78 LaborFlag: Labor Datetime: 05/27/2024 23:18 SpO2 (%): 98 Datetime: 05/27/2024 09:18 Membranes Ruptured Date/Time: 05/26/2024 14:00 Membranes Rupture Method: Spontaneous Amniotic Fluid Color: Clear Amniotic Fluid Amount: Moderate Amniotic Fluid Odor: None Datetime: 05/27/2024 07:26 MEDICATIONS Medication Comments: PP Pit started Datetime: 05/27/2024 06:50 I/O Interventions: Castañeda Discontinued Datetime: 05/27/2024 06:42 COMMUNICATION Communication: Provider at Bedside Datetime: 05/27/2024 06:08 VAGINAL EXAM Dilatation (cm): 8.0 Effacement (%): 90 Station: 0 Exam by: H. Seth, RN Vaginal Bleeding: Normal Show Datetime: 05/27/2024 05:41 PAIN Pain Scale: 0 Datetime: 05/27/2024 05:35 Patient Position/Activity: Left Tilt Epidural Positioning: Sitting Anesthesia Comments: repositioned and leaned back in bed. Questions and education provided Datetime: 05/27/2024 05:29 Epidural Procedure: Test Dose Datetime: 05/27/2024 05:17 PROCEDURE TIME OUT Procedure Verify: Correct Patient Identity; Correct Side and Site are Marked; Accurate Procedure Co nsent Form; Agreement on Procedure to be Done; Correct Patient Position ANESTHESIA Anesthesia Plans: Epidural Datetime: 05/27/2024 05:05 Patient Care Comments: UP to use restroom Datetime: 05/27/2024 04:48 PATIENT CARE IV/Blood Work: IV Bolus Started; IV Bolus Given ml @ 500 Datetime: 05/27/2024 04:37 Provider Notified (Name): E. Regalado, [employer] OPERATOR Notification Reason: Patient Request Communication Comments: Received orders to give 500 ml bolus of LR per [employer] OPER[employer] Datetime: 05/27/2024 04:00 Stage of : Labor
== END 2024-05-28 14:45 | disposition home or self-care (01) | DRG 807 ==
LOC: WFO 02:46 → FBP 02:47 → WFO 04:03 → FBP 04:04
PROVIDERS: ADMIT Obstetrics & Gynecology; ATTEND Obstetrics & Gynecology
PROC: 10E0XZZ Delivery of Products of Conception, External Approach (ICD-10-PCS; principal; 2024-05-27)
DX: O24.420 Gestational diabetes mellitus in childbirth, diet controlled (principal); Z37.0 Single live birth; Z3A.38 38 weeks gestation of pregnancy
CPT/HCPCS: 59025; 59409; 84112; 85025; 86850; 86900; 86901; 99215; A9270; J7120